=== PATIENT | female | born 1965 | race Caucasian/White ===

== ENCOUNTER 2017-12-18 18:19 | Inpatient (IN) | payer OTHER ==
[~2017-12-18] VITALS: Ht 157.5 cm; Wt 45.9 kg
[~2017-12-18 18:19] MED LIST: ADVAIR DISKU 11 UNIT INH; ATENOLOL25 MG PO; CLONIDINE0.1 MG PO; CYMBALTA 20 MG20 MG PO; FOLIC ACID 1 MG PO; FOLIC ACID 1MG (1 MG PO; FOLIC ACID PO; MULTI VITAMINS1 TAB PO; NEURONTIN100 MG PO; PROAIR HFA0.09 MG/Ac INH; PROTONIX 40MG T40 MG PO; SPIRIVA 18 MCG18 MCG INH; TRAZODONE HCL100 M1 PO; VITAMIN B1100 MG PO
--- NOTE | 2017-12-18 18:26 | ED PSYCHIATRIC COMPLAINT ---
History of Present Illness General Chief Complaint: ETOH/Drug Related Complaint Stated Complaint: BIBA ETOH DETOX Source: family Exam Limitations: clinical condition, intoxication Vital Signs & Intake/Output Vital Signs & Intake/Output Vital Signs Date Time Temp Pulse Resp B/P B/P Pulse O2 O2 Flow FiO2 Mean Ox Delivery Rate 12/19 1407 98.6 79 20 142/58 95 Nasal 2.0L Cannula 12/19 1129 97.1 72 18 125/65 96 Nasal 2.0L Cannula 12/19 1128 97.1 72 18 125/65 04/ 1124 98.0 77 18 129/69 96 Nasal 2.0L Cannula 12/19 0951 129/73 04/05 0936 98.7 95 20 129/73 04/05 0923 98.7 95 20 129/73 96 Nasal 2.0L Cannula 12/19 0833 96 Nasal 2.0L Cannula 12/19 0746 99.0 93 18 117/76 04/05 0721 99.0 93 18 117/76 100 Nasal 2.0L Cannula 12/19 0510 98.1 91 18 120/68 0405 0509 98.1 91 18 120/68 93 Nasal 2.0L Cannula 12/19 0321 96.9 85 18 116/63 97 Nasal 2.0L Cannula 12/19 0121 98.6 83 18 104/61 97 Nasal 2.0L Cannula 12/18 2319 98.4 82 16 100/58 98 Nasal 2.0L Cannula 12/18 2119 98.4 83 16 95/62 94 Nasal 2.0L Cannula 12/18 1918 96.0 92 16 126/75 94 Nasal 2.0L Cannula 12/18 1843 100 Nasal 2.0L Cannula 12/18 1837 98.6 102 18 99/56 100 Nasal 2.0L Cannula ED Intake and Output 12/19 0000 12/18 1200 Intake Total Output Total Balance Patient 110 lb Weight Weight Estimated Measurement Method Reconcile Medications Albuterol Sulfate (Proair Hfa) 0.09 MG/Actuation CATHY 2 PUFF INH Q4 PRN SHORTNESS OF BREATHE (Reported) Atenolol 25 MG TABLET 1 TAB PO DAILY bp (Reported) Duloxetine Hydrochloride (Cymbalta) 20 MG CAPSULE.DR 1 CAP PO BID depression (Reported) Fluticasone-Salmeterol (Advair 100-50 Diskus) 100 MCG-50 MCG/DOSE BLST.W.DEV 1 PUF INH BID BREATHING (Reported) Folic Acid (Folic Acid 1MG (0.2ML) Inj) 1 MG TABLET 1 TAB PO DAILY VITAMIN ( Reported) Folic Acid 1 MG TABLET 1 MG PO DAILY FOLATE SUPPLEMENT Gabapentin (Neurontin) 100 MG CAP 1 CAP PO TID anxiety Multivitamin (One Daily Multivitamin) 1 EACH TABLET 1 TAB PO DAILY MULTIVITAMIN Pantoprazole Sodium (Protonix) 40 MG TABLET.DR 1 TAB PO DAILY gerd Thiamine (Vitamin B1) 100 MG TAB 1 TAB PO DAILY VITAMIN B1 SUPPLEMENT Tiotropium [place] (Spiriva) 18 MCG CAP.W.DEV 1 CAP INH DAILY BREATHING ( Reported) TRAZODONE HCL (Trazodone HCl) 50 MG TABLET 1 TAB PO QPM anxiety (Reported) Triage Nurses Notes Reviewed? yes Onset: Abrupt Duration: unknown duration Timing: unknown Severity Numbers: 10 HPI: 12/18/17 7 PM 52-year-old female presents to the emergency department for alcohol intoxication. According to the patient's sister she drinks every day. She has severe COPD and is O2 dependent. She also smokes cigarettes. She also has a history of depression and has expressed suicidal ideation in the past. The sister feels she needs inpatient care. (Elías Worrell DO) Allergies Coded Allergies: citalopram (Intermediate, DIZZINESS 12/19/17) varenicline (Intermediate, UPSET STOMACH 12/19/17) (Luis MORLEY,Wolf) Past History Travel History Traveled to [place] past 21 day No Medical History Any Pertinent Medical History? 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 No (Elías Worrell DO) Review of Systems Review of Systems Constitutional: Reports: no symptoms. EENTM: Reports: no symptoms. Respiratory: Reports: short of breath. Cardiovascular: Denies: chest pain. GI: Denies: abdominal pain. Genitourinary: Reports: no symptoms. Musculoskeletal: Reports: no symptoms. Skin: Reports: no symptoms. Neurological/Psychological: Reports: no symptoms. Hematologic/Endocrine: Reports: no symptoms. Immunologic/Allergic: Reports: no symptoms. (Elías Worrell DO) Physical Exam Physical Exam General Appearance: anxious, moderate distress Head: atraumatic, normal appearance Eyes: Bilateral: normal appearance, PERRL, EOMI. Ears, Nose, Throat: normal pharynx, normal ENT inspection Neck: normal inspection, supple Respiratory: decreased breath sounds Cardiovascular: regular rate/rhythm Gastrointestinal: non-tender Extremities: normal range of motion Neurological/Psychiatric: awake, intoxicated Appearance/Memory/Insight: disheveled Behavoir/Eye Contact/Speech: cooperative Skin: intact, normal color, warm/dry SAD PERSONS SAD PERSONS Response Value Age <19 or >45 years? yes 1 Depression/Hopelessness? yes 2 Previous Attempts/Psych Care yes 1 Excessive Ethanol/Drug Use? yes 1 Single//? yes 1 Social Support? has support 0 Total 6 SAD PERSONS Done? yes (Elías Worrell DO) Progress Differential Diagnosis: drug intoxication, drug overdose, drug withdrawal, depression Plan of Care: Orders Procedure Date/time Status Regular Diet 12/19 B Active Admit to inpatient psych 12/19 1434 Active Continuous Observation Monitor 12/19 0700 Active Continuous Observation Monitor 12/19 0300 Active Continuous Observation Monitor 12/18 2300 Active Patient Safety Monitor 12/18 193 Active ED CRISIS PSYCH CONSULT 12/18 193 Active CIWA 12/19 1927 Active URINE DRUG SCREEN FOR ER ONLY 12/19 1927 Complete ETHANOL 12/19 1927 Complete COMPREHENSIVE METABOLIC PANEL 12/19 1927 Complete CBC WITHOUT DIFFERENTIAL 12/19 1927 Complete Continuous Observation Monitor 12/18 1900 Active Current Medications Sig/Benji Start time Last Medication Dose Stop Time Status Admin Trazodone HCl 50 MG QPM 12/19 2200 UNVr (Desyrel) Atenolol 25 MG DAILY 12/19 1000 UNVr 12/19 (Tenormin) 0951 Budesonide/ 2 PUF BID 12/19 1000 UNVr 12/19 Formoterol Fumarate 0951 (SYMBICORT) Tiotropium [place] 1 PUF DAILY 12/19 1000 UNVr 12/19 (Spiriva) 0951 Albuterol Sulfate 2 PUF Q4 12/19 0600 UNVr 12/19 (Ventolin) 1339 Gabapentin 100 MG Q8 12/19 0600 UNVr 12/19 (Neurontin) 1339 Duloxetine HCl 20 MG BID 12/19 0343 UNVr 12/19 (Cymbalta) 0951 Laboratory Tests 12/18/17 2215: Urine Opiates Screen < 100, Methadone Screen 49, Barbiturate Screen < 60, Ur Phencyclidine Scrn < 6.00, Amphetamines Screen < 100, U Benzodiazepines Scrn < 85, Urine Cocaine Screen < 50, Urine Cannabis Screen < 5.00 12/18/17 1950: Anion Gap 16, Estimated GFR > 60, BUN/Creatinine Ratio 10.0, Glucose 90, Calcium 8.9, Total Bilirubin 0.4, AST 28, ALT 21, Alkaline Phosphatase 63, Total Protein 6.9, Albumin 4.0, Globulin 2.9, Albumin/Globulin Ratio 1.4, CBC w Diff NO MAN DIFF REQ, RBC 4.14 L, MCV 95.7, MCH 30.6, MCHC 32.0 L, RDW 13.9, MPV 7.5, Gran % 77.1 H, Lymphocytes % 14.9 L, Monocytes % 5.1, Eosinophils % 1.9, Basophils % 1.0, Absolute Granulocytes 10.0 H, Absolute Lymphocytes 1.9, Absolute Monocytes 0.7 H, Absolute Eosinophils 0.2, Absolute Basophils 0.1, Serum Alcohol 267.0 Initial ED EKG: none Comments: 12/18/17 7 PM. The patient was signed out to Dr. Smith. (Elías Worrell DO) Hand-Off Endorsed To: Britton MORLEY,Freddy Knowles Endorsed Time: 0700 Pending: consult, other (ROSHNI) (Wolf Smith MD) Departure Departure Disposition: STILL A PATIENT Condition: Stable Referrals: Arvin Bui MD (PCP/Family) Departure Forms: Customer Survey General Discharge Information (Elías Worrell DO) Departure Clinical Impression Primary Impression: Depression with suicidal ideation Secondary Impressions: Alcohol intoxication, COPD (chronic obstructive pulmonary disease) (Wolf Smith MD) Psych Admission Note Psychiatric Admission: I have seen and evaluated SOMMER TORIBIO. I have also reviewed all the pertinent lab results and diagnostic results. SOMMER TORIBIO will be admitted to our inpatient Psychiatric unit for treatment and care. (Britton MORLEY,Freddy Knowles) Critical Care Note Critical Care Note Critical Care Time: 30-74 min (Elías Worrell DO)
[2017-12-18 20:08] LABS: ABSOLUTE BASOPHIL COUNT 0.1 /CUMM (0.0-0.2); ABSOLUTE EOSINOPHIL COUNT 0.2 /CUMM (0.0-0.7); ABSOLUTE LYMPH COUNT 1.9 /CUMM (1.2-3.4); ABSOLUTE MONOCYTE COUNT 0.7 /CUMM (0.10-0.60); EOSINOPHIL % 1.9 % (0-5); GRANULOCYTE % 77.1 % (42.2-75.2); HEMATOCRIT 39.6 % (37-47); MEAN CORPUSCULAR HGB 30.6 PG (27.0-31.0); MEAN CORPUSCULAR VOLUME 95.7 FL (81.0-99.0); MEAN PLATELET VOLUME 7.5 FL (7.4-10.4); PLATELET COUNT 371 /CUMM (130-400); RBC DISTRIBUTION WIDTH 13.9 % (11.5-14.5); RED BLOOD CELL CT 4.14 /CUMM (4.20-5.40); WHITE BLOOD CELL COUNT 12.9 /CUMM (4.8-10.8)
--- NOTE | 2017-12-18 20:38 | ED PSY CRISIS COLLATERAL NOTE ---
Collateral Note Collateral Note Family/Inform/Rani Contacts: Spoke in person with patient's sister Alanna Ballard [phone] (sister has hearing loss and may not be able to converse by phone. Sister reports patient has historical diagnoses of bipolar disorder, depressive disorder, anxiety disorder, and alcohol use disorder. Sister reports patient has no current mental health treatment provider and has been inconsistent with outpatient therapy. Sister believes she may not have had any formal mental health treatment since 2014. Patient was inpatient at [facility] in 2014 and then went to intensive outpatient program (IOP) and also a rehabilitation program followed by a sober [place]. During that year, sister reports patient achieved sobriety and had recovery support through [facility]. Patient did relapse when she returned home (mother's house). Per sister, patient has made suicidal statements within the past month such as "would be better of ." Sister believes patient is passively suicidal by drinking in conjuction with her current prescribed medications. Sister listed Trazadone, clonodine, klonopin as possible current medications she is prescribed. Sister reports she was prescribed Gabapentin in the past for alcohol withdrawal related seizures. Today, sister reports patient was hallucinating at home and may be hallucinating at the hospital. Patient stated to sister she believes she was in "[place]." Sister reports patient has a 37 year old daughter and a 28 year old son who both live out of state ([place] and [place] respectively.) She is fairly close with both children. She has no grandchildren. Patient receives social security disability benefits. Sister states patient is hopeless and has no friends, is isolative, and withdraws from family. Sister has observed patient only leaving the house to go to the pharmacy to pick and shovel man medications / buy cigarettes or go to the liquor store. Sister has observed patient drinking "nip" bottles but is unclear on the amount per day. Sister believes patient did drink today. Sister asked "I don't know how I can get a 72 hour hold? I need that." Sister asserts she would like to arrange for long-term treatment for patient before she is discharged as sister does not believe it would be safe for patient to return home with a discharge plan of outpatient therapy. Sister indicates she would prefer an inpatient admission or a transfer to a residential rehabilitation program. Sister is concerned that most treaters in the past 8 years have focused on her alcohol use disorder - sister states "everybody wants to treat the alcoholism...not the dual diagnosis.) Sister expressed frustration that patient' s medical condition (COPD and related need for oxygen) precludes her from some programs. Sister is willing to be a resource for patient and is supportive. Sister reports the family has suffered several losses recently (patient's brother due to a cardiac event, patient's father 3 years ago, and patient's sister in law recently.) Sister reports patient's father had an alcohol use disorder but was sober for several years before his . Spoke by phone with patient's mother Tierra Ballard [phone] *cell [phone] Patient lives with her mother - patient's sister Alanna also resides in the home. Mother states "She suffers from depression and alcoholism. She has had multiple opportunities to see somebody ...she doesnt go to her appointments...the alcoholism is an on-going thing for many years...over the last year she is doing it more frequently." Mother reports patient told her she saw a tree with "heads around it" (possible visual hallucination.) Two days ago, mother reports patient attempted to detox herself and spent two days in bed, sweating profusely. Today, patient was informed that her physician' s certified pharmacist assistant (CHRISTIE Sanford of [facility]) would no longer prescribe her Klonopin. Dr. Bledsoe also encouraged patient to go to [facility] for further evaluation per mother. Mother reports today, patient obtained some 90 proof liquor and became intoxicated. Mother reports patient was staggering and was incohert. Left voicemail with Yari Wayne, patient's daughter [phone]
[2017-12-19] VITALS (7 sets, daily range): BP systolic 117–139; BP diastolic 61–77
--- NOTE | 2017-12-19 13:43 | ED PSYCH CRISIS CONSULTATION ---
Crisis Consult Basic Assessment Date of Consult: 12/19/17 Responsible Person/Accompanied By: self/sister Alanna Insurance Authorization: Insurance #1: Insurance name: CECILE MOCK Phone number: Policy number: [id number] Group number: Authorization number: ED Provider: Patient's ED Provider: Elías Worrell DO Primary Care Physician: Patient's PCP: Arvin Bui MD PCP's Current Psychiatrist: aJyda SORIANO [facility] [phone] Chief Complaint: ETOH/Drug Related Complaint Patient's Quote: I was drinking too much lately Present Illness: Pt is a 52 yo female biba to [facility] ED last evening requesting alcohol detox. Pt was accompanied by her sister who reports that sister has a hx of depression, has been making suicidal statements and has a etoh withdrawal for seizures. Pt has had medical detox admissions at [facility] and a [facility]PS admission in 2014 for a suspected suicide attempt of overdose on her klonopin and ativan pills. Pt was discharged to [facility] but was not consistent with attendence and was soon discharged. Pt reportedly has had minimal treatment since. Pt is treated by Jayda SORIANO at [facility] and prescribed Lexapro, Clonidine, Trazadone and until 12/17 Klonopin. Pt also has a hx of inpatient alcohol treatment at [facility], [facility] and [facility]. Pt had been sober about 8months but relapsed 2 yrs ago and has been drinking steadily since. Pt reports 3 day binges of 10 nips per day though sister reports alcohol use is daily.Pt reports drinking more recently and feeling more depressed. She reports having made recent statements of being "better off ". She reports current depresion as a 8/10 and is feeling hopeless and helpless. Pt denies nonprescribed drug use. Pt is a cigarette smoker and requires oxygen for COPD. She reports a poor quality of life. She reports mostly staying home in bed or watching tv. Outside activity is limited to walking to the pharmacy and liquor store. Pt reports she is often bored and goes to bed early but then wakes up in the middle of the night and then is awake the rest of the night. Pt reports lose of appetite and is losing weight. Pt reports experiencing AH and VH under the influence of etoh. Pt denies HI. Pt presents as tremulous and diaphoretic. Appears weak and is laying down on bed during interview. Pt appears much older than stated age. Pt is cooperative and OX3. Pt reports willingness to enter inpatient treatment. Case reviewed with Dr Stephenson. Recommendation is for inpatient psychiatric treatment. Pt is in agreement with plan and will sign voluntary admission form for an admission to [facility]. C-SSRS completed, pts risk factors include prior suicide attempt, recent SI, previous psychiatric treatment, non-compliant with treatment recommendations, not currently receiving treatment, hopelessness, helplessness, depression, anxiety and COPD. Pt can identify the following protective factors: identifies reasons for living, specifically wanting to get sober for her children who are upset with her because of her alcohol use. Patient's Address: [address] [place] [address] Other Who Do You Live With? Other (see notes) (mother and sister) Family/Informants Interviewed: collateral provided by pt sister - see collateral note Allergies - Coded Allergies: citalopram (Intermediate, DIZZINESS 12/19/17) varenicline (Intermediate, UPSET STOMACH 12/19/17) Current Medications - Scheduled Medications Atenolol 25 MG TABLET 1 TAB PO DAILY bp (Reported) Entered as Reported by Kee Gonzalez MD on 12/02/142145 Duloxetine Hydrochloride (Cymbalta) 20 MG CAPSULE.DR 1 CAP PO BID depression # 60 (Reported) Entered as Reported by Baldomero Cooley MD on 01/13/15 1412 Fluticasone-Salmeterol (Advair 100-50 Diskus) 100 MCG-50 MCG/DOSE BLST.W.DEV 1 PUF INH BID BREATHING (Reported) Entered as Reported by Kee Gonzalez MD on 12/02/142146 Folic Acid (Folic Acid 1MG (0.2ML) Inj) 1 MG TABLET 1 TAB PO DAILY VITAMIN #30 (Reported) Entered as Reported by Baldomero Cooley MD on 01/12/15 1143 Folic Acid 1 MG TABLET 1 MG PO DAILY FOLATE SUPPLEMENT #30 Prescribed by Baldomero Cooley MD on 01/13/15 Gabapentin (Neurontin) 100 MG CAP 1 CAP PO TID anxiety #90 CAP Prescribed by Baldomero Cooley MD on 01/13/15 Multivitamin (One Daily Multivitamin) 1 EACH TABLET 1 TAB PO DAILY MULTIVITAMIN #30 Prescribed by Baldomero Cooley MD on 01/13/15 Pantoprazole Sodium (Protonix) 40 MG TABLET.DR 1 TAB PO DAILY gerd #30 Prescribed by Baldomero Cooley MD on 01/13/15 Thiamine (Vitamin B1) 100 MG TAB 1 TAB PO DAILY VITAMIN B1 SUPPLEMENT #30 Prescribed by Baldomero Cooley MD on 01/13/15 Tiotropium [place] (Spiriva) 18 MCG CAP.W.DEV 1 CAP INH DAILY BREATHING ( Reported) Entered as Reported by Kee Gonzalez MD on 12/02/142147 TRAZODONE HCL (Trazodone HCl) 50 MG TABLET 1 TAB PO QPM anxiety (Reported) Entered as Reported by Kee Gonzalez MD on 12/02/14 214 Scheduled PRN Medications Albuterol Sulfate (Proair Hfa) 0.09 MG/Actuation CATHY 2 PUFF INH Q4 PRN SHORTNESS OF BREATHE #9 (Reported) Entered as Reported by Baldomero Cooley MD on 01/12/15 1144 Laboratory Results: Laboratory Tests 12/18/17 2215: Urine Opiates Screen < 100, Methadone Screen 49, Barbiturate Screen < 60, Ur Phencyclidine Scrn < 6.00, Amphetamines Screen < 100, U Benzodiazepines Scrn < 85, Urine Cocaine Screen < 50, Urine Cannabis Screen < 5.00 12/18/17 1950: Anion Gap 16, Estimated GFR > 60, BUN/Creatinine Ratio 10.0, Glucose 90, Calcium 8.9, Total Bilirubin 0.4, AST 28, ALT 21, Alkaline Phosphatase 63, Total Protein 6.9, Albumin 4.0, Globulin 2.9, Albumin/Globulin Ratio 1.4, CBC w Diff NO MAN DIFF REQ, RBC 4.14 L, MCV 95.7, MCH 30.6, MCHC 32.0 L, RDW 13.9, MPV 7.5, Gran % 77.1 H, Lymphocytes % 14.9 L, Monocytes % 5.1, Eosinophils % 1.9, Basophils % 1.0, Absolute Granulocytes 10.0 H, Absolute Lymphocytes 1.9, Absolute Monocytes 0.7 H, Absolute Eosinophils 0.2, Absolute Basophils 0.1, Serum Alcohol 267.0 Past History Past Medical History Neurological: seizure, DTs ETOH WITHDRAWAL SEIZURES ETOH ABUSE status post fall down flight of stairs 09/2013 EENT: NONE Cardiovascular: hypertension Respiratory: NONE Gastrointestinal: NONE Hepatic: NONE Renal: NONE Musculoskeletal: disk herniation, right shoulder biceps/triceps surgery 05/2014 Psychiatric: alcohol dependence, anxiety, depression Endocrine: NONE Blood Disorders: NONE Cancer(s): NONE 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 Good listener, wants sobriety to have more of a life (productive, independent) Physical Limitations (Interventions): Back pain - can't stand or do sports for any length of time. Psychiatric Treatment History Psych Treatment Psychiatric Treatment Yes Inpatient Treatment Yes Outpatient Treatment Yes Location of Treatment [facility]; [facility] Reason for Treatment depression; alcohol dependence Dates of Treatment 2014 Response to Treatment poor follow through and relapse Diagnosis by History: Depression disorder, alcohol dependence Substance Use/Abuse History Drug Use/Abuse Substances Used/Abused Yes Substance Used/Abused Alcohol Last Used yesterday How much used/taken 10 nips How often daily For how long 3 yrs Substance Abuse Treatment Substance Abuse Treatment Past Substance Abuse TX Yes Inpatient Treatment Yes Outpatient Treatment Yes Location of Treatment [facility] Reason for Treatment alcohol dependence Dates of Treatment last sobriety 2 yrs ago Response to Treatment pt has gone to [facility] and but unable to maintain sobriety Comments: pt last drink was yesterday.Pt presents with tremors, shaking and reports feeling sick to her stomach. Current Mental Status Mental Status Orientation: Person, Place, Situation Affect: Depressed Speech: Soft Neuro-vegetative: Anhedonia, Appetite Decreased, Concentration Poor, Energy Decreased, Helpless, Hypersomnia, Loss of Interest, Sleep Disturbance Appearance Appearance- Dress/Hygiene: pt is hospital scrubs; appears frail, much older than stated age; receiving oxygen; laying prone in bed Behaviors Thought Process: WNL Thought Content: Auditory Hallucinations, Visual Hallucinations (when drinking etoh) Memory: Impaired Insight: Poor SI/HI Risk Assessment Past Suicidal Ideation/Attempts Yes Current Suicidal Ideation/Att Yes (passive) Past Homicidal Ideation/Att: No Current Homicidal Ideation/Attempts No Degree of Intent: Thoughts/No Intent Danger To: Self Gravely Disabled: Inability, Lack of Insight, Poor Impulse Control, Poor Judgment Risk Factors: access to lethal means, chronic/serious med cond., high anxiety/ distress, history of suicide atmpts, SA/MH hospitalized, substance abuse, poor impulse control, lack of outcome concern Lethality Ratin PTSD Checklist PTSD Done? patient declined ED Management Sitter: Yes Restraints: No DSM5/PS Stressors/Medical Prob Diagnosis' (DSM 5, Stressors, Medical): Major depression D/O F33.3 Alcohol Use D/O F10.20 Unspecified Anxiety D/O 41.9 medical Current GAF: 25 Comments: pt long hx of alcohol abuse and daily drinking past yr. Pt diagnosed with depression and expressing passive SI. Pt presents as gravely disabled with poor insight, judgement and inability to properly care for her medical needs. Departure Disposition Psych Medical Clearance Date: 12/19/17 Medically Cleared at: 1300 Time Started: 1300 Time Ended: 1345 Psychiatrist Consulted: Mariana Stephenson MD Date Disposition Established: 12/19/17 Time Disposition Established: 1415 Plan for Disposition - Modality: Inpatient Psychiatry Facility: [facility] Rationale for Disposition: Pt requires inpatient psychiatric admission to stabilize mood, assess for appropriate medications and monitor etoh withdrawal symptoms. Type of IP Admission: Voluntary Referrals Hao MORLEY,Arvin Landin (PCP/Family)
--- NOTE | 2017-12-19 16:28 | IP CRISIS DIAG ASSESS PSYCH ---
Diagnostic Assessment Basic Assessment Insurance Authorization: Insurance #1: Insurance name: CECILE Huerta [employer] [facility] Phone number: Policy number: [id number] Group number: Authorization number: [id number] Primary Care Physician: Patient's PCP: Arvin Bui MD PCP's Patient's Quote: I was drinking too much lately Present Illness: Pt is a 52 yo female biba to [facility] ED last evening requesting alcohol detox. Pt was accompanied by her sister who reports that sister has a hx of depression, has been making suicidal statements and has a etoh withdrawal for seizures. Pt has had medical detox admissions at [facility] and a CPS admission in 2015 for a suspected suicide attempt of overdose on her klonopin and ativan pills. Pt was discharged to [facility] but was not consistent with attendence and was soon discharged. Pt reportedly has had minimal treatment since. Pt is treated by Jayda SORIANO at [facility] and prescribed Lexapro, Clonidine, Trazadone and until 12/17 Klonopin. Pt also has a hx of inpatient alcohol treatment at [facility] and [facility]. Pt had been sober about 8months but relapsed 2 yrs ago and has been drinking steadily since. Pt reports 3 day binges of 10 nips per day though sister reports alcohol use is daily.Pt reports drinking more recently and feeling more depressed. She reports having made recent statements of being "better off ". She reports current depresion as a 8/10 and is feeling hopeless and helpless. Pt denies nonprescribed drug use. Pt is a cigarette smoker and requires oxygen for COPD. She reports a poor quality of life. She reports mostly staying home in bed or watching tv. Outside activity is limited to walking to the pharmacy and liquor store. Pt reports she is often bored and goes to bed early but then wakes up in the middle of the night and then is awake the rest of the night. Pt reports lose of appetite and is losing weight. Pt reports experiencing AH and VH under the influence of etoh. Pt denies HI. Pt presents as tremulous and diaphoretic. Appears weak and is laying down on bed during interview. Pt appears much older than stated age. Pt is cooperative and OX3. Pt reports willingness to enter inpatient treatment. Case reviewed with Dr Stephenson. Recommendation is for inpatient psychiatric treatment. Pt is in agreement with plan and will sign voluntary admission form for an admission to [facility]. C-SSRS completed, pts risk factors include prior suicide attempt, recent SI, previous psychiatric treatment, non-compliant with treatment recommendations, not currently receiving treatment, hopelessness, helplessness, depression, anxiety and COPD. Pt can identify the following protective factors: identifies reasons for living, specifically wanting to get sober for her children who are upset with her because of her alcohol use. Patient's Address: [address] [place] [address] Other Who Do You Live With? Other (see notes) (mother and sister) Feel Safe Where You Live? Yes Feel Safe in Your Relationship Yes Marital Status: Do You Have Children? Yes Ages? 36,28 Primary Language? Sierra Leonean Language(s) Spoken At Home: [place] Family/Informants Interviewed: collateral provided by pt sister - see collateral note Allergies - Coded Allergies: citalopram (Intermediate, DIZZINESS 12/19/17) varenicline (Intermediate, UPSET STOMACH 12/19/17) Current Medications - Scheduled Medications Atenolol 25 MG TABLET 1 TAB PO DAILY bp (Reported) Entered as Reported by Kee Gonzalez MD on 12/02/142145 Duloxetine Hydrochloride (Cymbalta) 20 MG CAPSULE. 1 CAP PO BID depression # 60 (Reported) Entered as Reported by Baldomero Cooley MD on 01/13/15 1412 Fluticasone-Salmeterol (Advair 100-50 Diskus) 100 MCG-50 MCG/DOSE BLST.W.DEV 1 PUF INH BID BREATHING (Reported) Entered as Reported by Kee Gonzalez MD on 12/02/142146 Folic Acid (Folic Acid 1MG (0.2ML) Inj) 1 MG TABLET 1 TAB PO DAILY VITAMIN #30 (Reported) Entered as Reported by Baldomero Cooley MD on 01/12/15 1143 Folic Acid 1 MG TABLET 1 MG PO DAILY FOLATE SUPPLEMENT #30 Prescribed by Baldomero Cooley MD on 01/13/15 Gabapentin (Neurontin) 100 MG CAP 1 CAP PO TID anxiety #90 CAP Prescribed by Baldomero Cooley MD on 01/13/15 Multivitamin (One Daily Multivitamin) 1 EACH TABLET 1 TAB PO DAILY MULTIVITAMIN #30 Prescribed by Baldomero Cooley MD on 01/13/15 Pantoprazole Sodium (Protonix) 40 MG TABLET.DR 1 TAB PO DAILY gerd #30 Prescribed by Baldomero Cooley MD on 01/13/15 Thiamine (Vitamin B1) 100 MG TAB 1 TAB PO DAILY VITAMIN B1 SUPPLEMENT #30 Prescribed by Baldomero Cooley MD on 01/13/15 Tiotropium [place] (Spiriva) 18 MCG CAP.W.DEV 1 CAP INH DAILY BREATHING ( Reported) Entered as Reported by Kee Gonzalez MD on 12/02/142147 TRAZODONE HCL (Trazodone HCl) 50 MG TABLET 1 TAB PO QPM anxiety (Reported) Entered as Reported by Kee Gonzalez MD on 12/02/142145 Scheduled PRN Medications Albuterol Sulfate (Proair Hfa) 0.09 MG/Actuation CATHY 2 PUFF INH Q4 PRN SHORTNESS OF BREATHE #9 (Reported) Entered as Reported by Baldomero Cooley MD on 01/12/15 1144 Consequences of Psych Med Use: pt Klonopin discontinued 12/17 by Prescriber due to continued etoh abuse Lab Results: Laboratory Tests 12/18/17 2215: Urine Opiates Screen < 100, Methadone Screen 49, Barbiturate Screen < 60, Ur Phencyclidine Scrn < 6.00, Amphetamines Screen < 100, U Benzodiazepines Scrn < 85, Urine Cocaine Screen < 50, Urine Cannabis Screen < 5.00 12/18/17 1950: Anion Gap 16, Estimated GFR > 60, BUN/Creatinine Ratio 10.0, Glucose 90, Calcium 8.9, Total Bilirubin 0.4, AST 28, ALT 21, Alkaline Phosphatase 63, Total Protein 6.9, Albumin 4.0, Globulin 2.9, Albumin/Globulin Ratio 1.4, CBC w Diff NO MAN DIFF REQ, RBC 4.14 L, MCV 95.7, MCH 30.6, MCHC 32.0 L, RDW 13.9, MPV 7.5, Gran % 77.1 H, Lymphocytes % 14.9 L, Monocytes % 5.1, Eosinophils % 1.9, Basophils % 1.0, Absolute Granulocytes 10.0 H, Absolute Lymphocytes 1.9, Absolute Monocytes 0.7 H, Absolute Eosinophils 0.2, Absolute Basophils 0.1, Serum Alcohol 267.0 Toxicology Screen Completed? Yes Results: positive Symptoms of Use: etoh Past History Past Medical History Medical History: COPD Past Surgical History Surgical History non-contributory Abuse/Trauma History Trauma History/Current Trauma: of [id number] (age 40yo) - 2yrs ago. History of Trauma/Abuse Treatment? No Abuse/Trauma Treatment: na Legal History Current Legal Status: none Have you ever been arrested? No Psychosocial History Strengths/Capabilities: prior ed report notes: Intellignt, social, cooking, I am a people person. Good listener, wants sobriety to have more of a life (productive, independent) Physical Limitations (Interventions): Back pain - can't stand or do sports for any length of time. Psychiatric Treatment History Psych Treatment Psychiatric Treatment Yes Inpatient Treatment Yes Outpatient Treatment Yes Location of Treatment [facility]; [facility] Reason for Treatment depression; alcohol dependence Dates of Treatment 2014 Response to Treatment poor follow through and relapse Diagnosis by History: Depression disorder, alcohol dependence Risk Factors: access to lethal means, chronic/serious med cond., high anxiety/ distress, history of suicide atmpts, SA/MH hospitalized, substance abuse, poor impulse control, lack of outcome concern Substance Use/Abuse History Drug Use/Abuse minimum 12mo Hx Substances Used/Abused Yes Substance Used/Abused Alcohol Last Used yesterday How much used/taken 10 nips How often daily For how long 3 yrs Substance Abuse Treatment Substance Abuse Treatment Past Substance Abuse TX Yes Inpatient Treatment Yes Outpatient Treatment Yes Location of Treatment [facility] Reason for Treatment alcohol dependence Dates of Treatment last sobriety 2 yrs ago Response to Treatment pt has gone to IOP and AA but unable to maintain sobriety Education History Highest Level of Education: high school/GED Preferred Learning Style: visual, auditory, experiential Current Mental Status Mental Status Orientation: Person, Place, Situation Affect: Depressed Speech: Soft Neuro-vegetative: Anhedonia, Appetite Decreased, Concentration Poor, Energy Decreased, Helpless, Hypersomnia, Loss of Interest, Sleep Disturbance Appearance Appearance- Dress/Hygiene: pt is hospital scrubs; appears frail, much older than stated age; receiving oxygen; laying prone in bed Behaviors Thought Process: WNL Thought Content: Auditory Hallucinations, Visual Hallucinations (when drinking etoh) Memory: Impaired Insight: Poor SI/HI Risk Assessment - Minimum 6mo History- Past Suicidal Ideation/Attempts Yes Current Suicidal Ideation/Att Yes (passive) Past Homicidal Ideation/Att: No Current Homicidal Ideation/Attempts No Degree of Intent: Thoughts/No Intent Danger To: Self Gravely Disabled: Inability, Lack of Insight, Poor Impulse Control, Poor Judgment Risk Factors: access to lethal means, chronic/serious med cond., high anxiety/ distress, history of suicide atmpts, SA/MH hospitalized, substance abuse, poor impulse control, lack of outcome concern Lethality Ratin Needs/Init TX Plan/Goals: Psychiatric Evaluation Medication Assessment Individual, Group and Family meetings Coordinated Discharge Planning AUDIT-C Questionnaire: AUDIT-C Questionnaire: Response Value ETOH use in the past year 4 or more per week 4 # drinks typical/day 10 or more 4 6 or > drinks per occasion Daily/Almost Daily 4 Total 12 DSM5/PS Stressors/Medical Prob Diagnosis' (DSM 5, Stressors, Medical): Major depression D/O F33.3 Alcohol Use D/O F10.20 Unspecified Anxiety D/O 41.9 medical Current GAF: 25 Comments: pt long hx of alcohol abuse and daily drinking past yr. Pt diagnosed with depression and expressing passive SI. Pt presents as gravely disabled with poor insight, judgement and inability to properly care for her medical needs.
[2017-12-19] MEDS ORDERED: LEVOCETIRIZINE D5 M1 PO (19:17)
[2017-12-19] MEDS ORDERED: ESCITALOPRAM OX20 MG PO (19:18)
[2017-12-19] MEDS ORDERED: IPRAT-ALBUT 0.5-3 ML INH (19:19)
[2017-12-19] MEDS ORDERED: BREO ELLIPTA 21 EACH PO (19:20)
[2017-12-19] MEDS ORDERED: CLONIDINE HCL0.1 MG PO (19:24)
[2017-12-19] MEDS ORDERED: CLONAZEPAM0.5 M2 PO (19:25)
[2017-12-20] VITALS (9 sets, daily range): BP systolic 106–132; BP diastolic 64–89
--- NOTE | 2017-12-20 08:22 | CPS PROVIDER INIT ASMT PSYCH ---
Psychiatric Admission Freight Clerk's Note Reviewed: Yes Patient Seen and Examined: Yes Identifying Information: Pt is a 52 yo female biba to [facility] ED last evening requesting alcohol detox. Chief Complaint: I was drinking too much lately Reaction to Hospitalization: voluntary admission History of Present Illness Onset of Illness: Pt was accompanied by her sister who reports that sister has a hx of depression, has been making suicidal statements and has a etoh withdrawal for seizures. Pt has had medical detox admissions at [facility] and a CPS admission in 2014 for a suspected suicide attempt of overdose on her klonopin and ativan pills. Pt was discharged to [facility] but was not consistent with attendence and was soon discharged. Pt reportedly has had minimal treatment since. Pt is treated by Jayda SORIANO at [facility] and prescribed Lexapro, Clonidine, Trazadone and until 12/17 Klonopin. Pt also has a hx of inpatient alcohol treatment at [facility], [facility], [facility], [facility] and [facility]. Pt had been sober about 8months but relapsed 2 yrs ago and has been drinking steadily since. Pt reports 3 day binges of 10 nips per day though sister reports alcohol use is daily.Pt reports drinking more recently and feeling more depressed. She reports having made recent statements of being "better off ". She reports current depresion as a 8/10 and is feeling hopeless and helpless. Circumstances Leading to Admission: see above Problem(s) Justifying Need for Admission: see above Past Psychiatric History Past Diagnosis(es)- if any: Depression disorder, alcohol dependence Past Precipitating Factors- if any: drinking - Include inpatient and outpatient treatment Treatment History: [facility]; [facility] Patient reports history of anxiety and history of poor memory and concentration. Patient reports she was seen at [facility] once or twice in the past. No suicide attempts. History of Suicide Attempts or Gestures None Substance Abuse History: Tobacco at about 1 pack per day. Alcohol use. Tried marijuana [address] drugs but has taken daughter's Klonopin. Patient was treated at [facility] in September 2014. She was at [facility] 2 years ago. She was at [facility] for 3 months in 2012. Allergies: Coded Allergies: citalopram (Intermediate, DIZZINESS 12/19/17) varenicline (Intermediate, UPSET STOMACH 12/19/17) Home Med List: Atenolol 25 MG TABLET 1 TAB PO DAILY bp Lexapro 20 mg QAM Folic Acid (Folic Acid 1MG (0.2ML) Inj) 1 MG TABLET Pantoprazole Sodium (Protonix) 40 MG TABLET.DR 1 TAB PO DAILY gerd #30 Clonidine Thiamine (Vitamin B1) 100 MG TAB 1 TAB PO DAILY VITAMIN B1 SUPPLEMENT #30 Tiotropium [place] (Spiriva) 18 MCG CAP.W.DEV 1 CAP INH DAILY BREATHING TRAZODONE HCL (Trazodone HCl) 50 MG TABLET 1 TAB PO QPM - Include any medical condition(s) that may - impact the patient's recovery/remission Past Medical History: COPD Past History Medical History Neurological: seizure, DTs ETOH WITHDRAWAL SEIZURES ETOH ABUSE status post fall down flight of stairs 09/2013 EENT: NONE Cardiovascular: hypertension Respiratory: NONE Gastrointestinal: NONE Hepatic: NONE Renal: NONE Musculoskeletal: disk herniation, right shoulder biceps/triceps surgery 05/2014 Psychiatric: alcohol dependence, anxiety, depression Endocrine: NONE Blood Disorders: NONE Cancer(s): NONE [employer] [facility] MAGISTRATE/Reproductive: NONE Isolation History: Standard Pneumonia Vaccine: 11/21/11 Influenza Vaccine: 05/26/11 Surgical History Surgical History: non-contributory Psychiatric Family/Social Hx Family History Psychiatric Illness: Reports mother, daughter and sister all have anxiety. No substance abuse history or suicides in the family. Substance Use: None Suicides: none Social History Living Situation: with parents Significant Relationships (family/friends): parents and daughter Education: 11th grade education Vocation/Occupation: Patient last worked 3-4 years ago at a [employer] and doing [email or web address]. Legal: denied legal issues Healthly Behaviors Screening Tobacco Screening Tobacco Use from ED Docu: Current Daily Use Daily Tobacco Use Amount/Type: => 5 Cigarettes daily - If tobacco counseling indicated - the following topics are required. - #1 Recognizing dangerous situations. - #2 Coping Skills. - #3 Basic information about quitting. Status of Tobacco Cessation Counseling: #1, #2 AND #3 Completed Cessation Med Status Nicotine Patch Ordered Alcohol Screening - ETOH screen POS if BAL >=80 or Audit-C>= M4/F3 Audit-C Score from Diag Assess: 12 Blood Alcohol Level: Laboratory Tests 12/18 1949 Toxicology Serum Alcohol (<10 MG/DL) 267.0 Alcohol Use Screening Results: Pos per Audit C &/or BAL - If ETOH counseling indicated - the following topics are required. - #1 Express concern about the patient's - drinking at unhealthy levels, include informing - of national norms for moderate drinking: - men <= 14 drinks/week, max 4 drinks/occasion - women <= 7 drinks/week, max 3 drinks/occasion - #2 Providing feedback, including linking alcohol to - negative physical effects (liver injury, hypertension) - negative emotional effects (relationship problems and - depression) - negative occupational consequences (reduced work - performance) - #3 Advising the patient to abstain from alcohol or - to drink below national norms for moderate drinking - (as listed above). Status of ETOH Use Counseling: #1, #2 AND #3 Completed. Metabolic Screening - Screen if on a Neuroleptic Medication - Metabolic screening should include: - Blood Pressure, BMI, Glucose or Hgb A1c, & a - Lipid profile from within the past 365 days. Metabolic Screening ([X]) Not Applicable, patient not on a neuroleptic. Exam and Plan Mental Status Examination Ambulation Status: The patient was interviewed in her bed she reported that she is not feeling well she is on oxygen therapy Appearance: Unremarkable appearance, she has oxygen via nasal cannula Attitude towards examiner: She was cooperative, she was calm but disinterested Psychomotor activity: Reduce psychomotor activity Behavior: No abnormal behaviors Quality of speech: Normal speech Affect: Constricted affect slightly irritable she reported that she is having mild withdrawal Mood: Depressed mood Suicidal Ideation: Denied thinking of suicide today Homicidal Ideation: Denied thinking of violence or homicide today Hallucinations: Denied hallucinations Paranoid/Delusional Material: Denied feeling paranoid, there were no delusions during the interview Difficulties with thought organization: Patient was coherent, there were no loose associations or incoherence Insight: Partial insight Judgment: Questionable judgment Orientation: Alert and oriented to time, place, and person Cognition: Seems to have reasonable attention and concentration Memory Function: No evidence of short-term memory impairment Estimate of intellectual functioning: Average Assets/Strengths Patient Identified Assets/Strengths: The patient seems to be self advocating and resourceful Impression/Plan Impression and Plan: 52-year-old single white female who was admitted because of concern about suicidal thinking. She has been drinking daily. She denied that she is having thoughts of suicide today she reported mild withdrawal symptoms - Include all active medical diagnosis that require tx DSM 5 Diagnosis(es): Unspecified depressive disorder Alcohol use disorder, severe - Initial Tx Plan for Active Psych & Medical Conditions Treatment Plan: Inpatient psychiatric care with safety checks every 15 minutes Nursing assessments, vital signs, and patient education Group therapy, milieu therapy, and activity therapy, Biopsychosocial assessment by social work, collateral, and aftercare planning Discontinue Cymbalta Resume Lexapro at 10 mg today and 20 mg as of tomorrow morning Continue detoxification from alcohol Will add Klonopin because the patient has been on Klonopin for about a month by his primary care physician and has had a history of withdrawal seizures in the past We will add gabapentin as well - Factors that would help patient function - in a less restrictive setting. Factors: The patient will be discharged if she continues to deny suicidal ideation over the weekend and once her detoxification is safely completed
--- NOTE | 2017-12-20 13:24 | SOCIAL WORKER SOCIAL HX PSYCH ---
Social History Basic Assessment Insurance Authorization: Insurance #1: Insurance name: CECILE Huerta [employer] [facility] Phone number: Policy number: [id number] Group number: Authorization number: PENDING Primary Care Physician: Patient's PCP: Arvin Bui MD PCP's Present Problem: Patient is depressed and overwhelmed by numeroous psychosocial stressors, and physical issues as well. Primary Language? [place] Citizen Language(s) Spoken At Home: [place] Citizen Living Situation Other Living Arrangement: friend's home, relative's/guardian's gisselle Feel Safe Where You Are Living Yes Feel Safe in Relationships? Yes Allergies - Coded Allergies: citalopram (Intermediate, DIZZINESS 12/19/17) varenicline (Intermediate, UPSET STOMACH 12/19/17) Current Medications - Scheduled Medications Atenolol 25 MG TABLET 1 TAB PO DAILY bp (Reported) Entered as Reported by Kee Gonzalez MD on 12/02/14 2146 Clonazepam 0.5 MG TABLET 1 TAB PO BID ANXIETY (Reported) Entered as Reported by Allen Mcconnell on 12/19/17 1925 Clonidine HCl 0.1 MG TABLET 1 TAB PO AT BEDTIME BLOOD PRESSURE (Reported) Entered as Reported by Allen Mcconnell on 12/19/17 1924 Duloxetine Hydrochloride (Cymbalta) 20 MG CAPSULE.DR 1 CAP PO BID depression # 60 (Reported) Entered as Reported by Baldomero Cooley MD on 01/13/15 1412 Escitalopram Oxalate 20 MG TABLET 1 TAB PO 0800 MENTAL HEALTH (Reported) Entered as Reported by Allen Mcconnell on 12/19/17 1918 Fluticasone/Vilanterol (Breo Ellipta 200-25 Mcg INH) 200 MCG-25 MCG/DOSE BLST.W.DEV 1 PUF PO 0800 COPD (Reported) Entered as Reported by Allen Mcconnell on 12/19/17 1920 Folic Acid (Folic Acid 1MG (0.2ML) Inj) 1 MG TABLET 1 TAB PO DAILY VITAMIN #30 (Reported) Entered as Reported by Baldomero Cooley MD on 01/12/15 1143 Folic Acid 1 MG TABLET 1 MG PO DAILY FOLATE SUPPLEMENT #30 Prescribed by Baldomero Cooley MD on 01/13/15 Gabapentin (Neurontin) 100 MG CAP 1 CAP PO TID anxiety #90 CAP Prescribed by Baldomero Cooley MD on 01/13/15 Levocetirizine Dihydrochloride 5 MG TABLET 1 TAB PO QPM ALLERGY (Reported) Entered as Reported by Allen Mcconnell on 12/19/171916 Multivitamin (One Daily Multivitamin) 1 EACH TABLET 1 TAB PO DAILY MULTIVITAMIN #30 Prescribed by Baldomero Cooley MD on 01/13/15 Pantoprazole Sodium (Protonix) 40 MG TABLET.DR 1 TAB PO DAILY gerd #30 Prescribed by Baldomero Cooley MD on 01/13/15 Thiamine (Vitamin B1) 100 MG TAB 1 TAB PO DAILY VITAMIN B1 SUPPLEMENT #30 Prescribed by Baldomero Cooley MD on 01/13/15 Trazodone HCl 100 MG TABLET 1 TAB PO AT BEDTIME SLEEP (Reported) Entered as Reported by Kee Gonzalez MD on 12/02/14 2146 Scheduled PRN Medications Albuterol Sulfate (Proair Hfa) 0.09 MG/Actuation CATHY 2 PUFF INH Q4 PRN SHORTNESS OF BREATHE #9 (Reported) Entered as Reported by Baldomero Cooley MD on 01/12/15 1144 Ipratropium/Albuterol Sulfate (Iprat-Albut 0.5-3(2.5) MG/3 Ml) 0.5 MG-3 MG (2.5 MG BASE)/3 ML AMPUL.NEB 1 VIAL INH Q6-PRN PRN COPD (Reported) Entered as Reported by Allen Mcconnell on 12/19/171918 Consequences of Psych Med Use: Has been on Lexapro for many years. She is unsure if it helps. 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 No Mother's Age (Current/): 79 Relationship w/Mother: Good relationship - anxiety (takes Ativan for anxiety) Father's Age (Current/): 81 Relationship w/Father: Good relationship, Father alcoholic (sober for 30yrs) father M.I. Any Sibling(s)? Yes Sibling's Gender(s)/Age(s): female Sibling 1:, female Sibling 2:, male Sibling 3:, male Sibling 4:, male Sibling 5: Relationship w/Sibling(s): Sister (50yo)-depression (Wellbutrin). Close with siblings - (age ranges 53, 50, 48, 45, 42) Relationship w/Friends: No good friends, not close to AA friends in [place]. Family Psych/Sub Abuse/Add Hx: drug of choice (Fa-alcoholic/Mo-anxiety), diagnosis Number of Pregnancies: 2 Number of Miscarriages: 1 Number of Abortions: 0 Abuse/Trauma History Trauma History/Current Trauma: of [id number] (age 40yo) - 2yrs ago. History of Trauma/Abuse Treatment? No Abuse/Trauma Treatment: na Legal History Current Legal Status: none Have you ever been arrested No Hx of Juvenile Legal Charges? No Psychosocial History Primary Support System: father, mother, daughter Strengths/Capabilities: prior ed report notes: Intellignt, social, cooking, I am a people person. Good listener, wants sobriety to have more of a life (productive, independent) Physical Limitations (Interventions): Back pain - can't stand or do sports for any length of time. Last Physical: 2013. History of Seizures? No Last Seizure: 12/02/14 History of Blackouts? Yes Last Blackout: 12/02/14 ADL Limitations: Difficulty staying asleep and getting to sleep (when drinking) [place]/Social/Peer Relations No friends now Meaningful Activities: Like cooking, family events (niece,nephew), be outside, garden, beach Childhood Scientology: Moravian Current Pentecostal Affiliation: Moravian Is Spirituality Important to You? Yes Patient's Ethnicity: Czechoslovakian, Kinyarwanda, South Korean, Bahamian Are There Developmental Issues? No Milestones Achieved: WNL Psychiatric Treatment History Psych Treatment Inpatient Treatment Yes Outpatient Treatment Yes Location of Treatment CPS; IOP Reason for Treatment depression; alcohol dependence Dates of Treatment 2014 Response to Treatment poor follow through and relapse Treatment of Prior Episodes: good Diagnosis: Depression disorder, alcohol dependence Psychodynamic Issues: isolated, depression, living with parents, financial issues Risk Factors: access to lethal means, chronic/serious med cond., high anxiety/ distress, history of suicide atmpts, SA/MH hospitalized, substance abuse, poor impulse control, lack of outcome concern Substance Use/Abuse History Drug Use/Abuse Substance Used/Abused Alcohol First Use 14 Last Used yesterday How much used/taken 10 nips How often daily For how long 3 yrs Route of use p.o. Have Had Periods of Sobriety? Yes Explain: 2 years was longest.' other periods of sobriety as well. Relapse History? Yes Explain: stressed Have You Ever Attended AA? Yes Do You Attend AA Currently? No Do You Have a Sponsor? No Symptoms of Use: etoh Substance Abuse Treatment Substance Abuse Treatment Inpatient Treatment Yes Outpatient Treatment Yes Location of Treatment [facility]; [place]; [facility]; [place] Reason for Treatment alcohol dependence Dates of Treatment last sobriety 2 yrs ago Response to Treatment pt has gone to IOP and AA but unable to maintain sobriety Sexual History Sexually Active No # of partners 0 Sexual Orientation Heterosexual Use of Protection No Education History Highest Level of Education: high school/GED Highest Grade Completed: 11th Preferred Learning Style: visual, auditory, experiential HX of Learning Difficulties: None reported Barriers to Learning: None reported Special Communication Needs: None reported Employment History Employment Unemployed Not in Labor Force: Disabled No. of Jobs in Last 5 Years: 2 Attendance: Normal Performance: Good History Have You Been in The ? No Current Mental Status Mental Status Orientation: Person, Place, Situation Affect: Depressed Speech: Soft Neuro-vegetative: Anhedonia, Appetite Decreased, Concentration Poor, Energy Decreased, Helpless, Hypersomnia, Loss of Interest, Sleep Disturbance Appearance Appearance- Dress/Hygiene: pt is hospital scrubs; appears frail, much older than stated age; receiving oxygen; laying prone in bed Behaviors Thought Process: WNL Thought Content: Auditory Hallucinations, Visual Hallucinations (when drinking etoh) Memory: Impaired Insight: Poor SI/HI Risk Assessment Past Suicidal Ideation/Attempts Yes Current Suicidal Ideation/Att Yes (passive) Past Homicidal Ideation/Att: No Current Homicidal Ideation/Attempts No Degree of Intent: Thoughts/No Intent Danger To: Self Gravely Disabled: Inability, Lack of Insight, Poor Impulse Control, Poor Judgment Risk Factors: Access to lethal weapons, Chronic/serious med cond, High Anxiety/ Distress, SA/MH Hospitalization(s), Isolated/no social suppor, Substance Abuse Lethality Ratin - Conclusion and Recommendations for treatment - and discharge planning Summary: Pt. overwhelmed at present, and danger to self.
--- NOTE | 2017-12-20 14:15 | SOCIAL WORKER PROG NOTE PSYCH ---
Social Work Progress Note Progress Note Pt would like to have her Mother involved in a family meeting for support, she states she would also like to return to dual IOP. We made her an intake appt on Saturday at 1:15pm with IOP. Pt reports feeling nauseas, she appears tired , and is on detox protocol. Denies any thoughts or feelings of si/hi/ah/vh at this time.
--- NOTE | 2017-12-20 15:48 | History & Physical ---
General Information and HPI MD Statement: I have seen and personally examined SOMMER TORIBIO and documented this H&P. The patient is a 52 year old F who presented with a patient stated chief complaint of depression and alcohol detox. Source of Information: patient, old records Exam Limitations: no limitations History of Present Illness: The patient is a 52 yo female with h/o COPD (on oxygen 2 L/min at night only), HTN, disk disease, EtOH abuse (h/o seizures), anxiety and depression who presented in the ED with depression and requesting alcohol detox. Her PCP (Jayda Orellana APRN) had been prescribing Klonopin 1 mg bid for 1 month+ and had just discontinued prescribing due to the patient's continued alcohol use. The patient was tremulous and anxious at the time of my exam. She also complained of mild cough w/o sputum, and some right posterior back pain with cough. No fever, chills, abdominal pain, or dyspnea. The patient's chart indicated that she used oxygen fulltime, however she stated only uses at night. Her pulse ox on RA with ambulation was 96% at the time of my exam. Allergies/Medications Allergies: Coded Allergies: citalopram (Intermediate, DIZZINESS 12/19/17) varenicline (Intermediate, UPSET STOMACH 12/19/17) Home Med list Albuterol Sulfate (Proair Hfa) 0.09 MG/Actuation CATHY 2 PUFF INH Q4 PRN SHORTNESS OF BREATHE (Reported) Atenolol 25 MG TABLET 1 TAB PO DAILY bp (Reported) Clonazepam 0.5 MG TABLET 1 TAB PO BID ANXIETY (Reported) Clonidine HCl 0.1 MG TABLET 1 TAB PO AT BEDTIME BLOOD PRESSURE (Reported) Duloxetine Hydrochloride (Cymbalta) 20 MG CAPSULE.DR 1 CAP PO BID depression (Reported) Escitalopram Oxalate 20 MG TABLET 1 TAB PO 0800 MENTAL HEALTH (Reported) Fluticasone/Vilanterol (Breo Ellipta 200-25 Mcg INH) 200 MCG-25 MCG/DOSE BLST.W.DEV 1 PUF PO 0800 COPD (Reported) Folic Acid (Folic Acid 1MG (0.2ML) Inj) 1 MG TABLET 1 TAB PO DAILY VITAMIN ( Reported) Folic Acid 1 MG TABLET 1 MG PO DAILY FOLATE SUPPLEMENT Gabapentin (Neurontin) 100 MG CAP 1 CAP PO TID anxiety Ipratropium/Albuterol Sulfate (Iprat-Albut 0.5-3(2.5) MG/3 Ml) 0.5 MG-3 MG (2.5 MG BASE)/3 ML AMPUL.NEB 1 VIAL INH Q6-PRN PRN COPD (Reported) Levocetirizine Dihydrochloride 5 MG TABLET 1 TAB PO QPM ALLERGY (Reported) Multivitamin (One Daily Multivitamin) 1 EACH TABLET 1 TAB PO DAILY MULTIVITAMIN Pantoprazole Sodium (Protonix) 40 MG TABLET.DR 1 TAB PO DAILY gerd Thiamine (Vitamin B1) 100 MG TAB 1 TAB PO DAILY VITAMIN B1 SUPPLEMENT Trazodone HCl 100 MG TABLET 1 TAB PO AT BEDTIME SLEEP (Reported) Compliance With Home Meds: GOOD Past History Travel History Traveled to [place] past 21 day No Medical History Neurological: NONE (ALCOHOL RELATED), seizure, DTs ETOH WITHDRAWAL SEIZURES ETOH ABUSE status post fall down flight of stairs 09/2013 EENT: NONE Cardiovascular: hypertension Respiratory: NONE (ON 2L NASAL OXYGEN AT NIGHT), COPD Gastrointestinal: NONE Hepatic: NONE Renal: NONE Musculoskeletal: disk herniation, right shoulder biceps/triceps surgery 05/2014 Psychiatric: alcohol dependence, anxiety, depression Endocrine: NONE Blood Disorders: NONE Cancer(s): NONE [place]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 Psychosocial History Services at Home: None Primary Language: Sami Smoking Status: Current Everyday Smoker ETOH Use: heavy use Illicit Drug Use: denies illicit drug use Functional Ability ADLs Independent: dressing, eating, toileting, bathing. Ambulation: independent IADLs Independent: shopping, housework, finances, food prep, telephone, transportation , medication admin. Employment History Employment Unemployed Review of Systems Review of Systems Constitutional: Denies: no symptoms. EENTM: Denies: no symptoms. Cardiovascular: Denies: no symptoms. Respiratory: Reports: cough (MILD). GI: Denies: no symptoms. Genitourinary: Denies: no symptoms. Musculoskeletal: Reports: back pain, joint pain (RT SHOULDER). Skin: Denies: no symptoms. Neurological/Psychological: Reports: anxiety, depressed, emotional problems. Hematologic/Endocrine: Denies: no symptoms. Immunologic/Allergic: Denies: no symptoms. Exam & Diagnostic Data Last 24 Hrs of Vital Signs/I&O Vital Signs Date Time Temp Pulse Resp B/P B/P Pulse O2 O2 Flow FiO2 Mean Ox Delivery Rate 12/20 1239 97.0 89 132/87 12/20 1231 89 132/87 97 12/20 1138 95.8 90 20 127/89 12/20 0804 95.8 90 127/89 98 /06 0549 64 20 112/72 / 0148 64 120/78 12/19 2229 69 123/61 12/20 2003 98.2 65 139/70 12/20 2003 98.2 65 139/70 12/19 1855 97.3 78 128/77 12/19 1612 98.4 88 18 126/70 94 Nasal 2.0L Cannula Intake & Output 12/20 1600 12/20 0800 12/20 0000 Intake Total Output Total Balance Patient 101 lb Weight Physical Exam General Appearance Alert, Oriented X3, Cooperative, No Acute Distress Skin No Rashes, No Breakdown, No Significant Lesion HEENT Atraumatic, PERRLA, EOMI, Mucous Membr. moist/pink Neck Supple, No JVD, No thryomegaly, +2 Carotid Pulse wo Bruit, No LAD Cardiovascular Regular Rate, Normal S1, Normal S2, No Murmurs Lungs Clear to Auscultation, Normal Air Movement (NO WHEEZE) Abdomen Normal Bowel Sounds, Soft, No Tenderness, No Hepatospenomegaly, No Masses Neurological Exam Findings: Normal Gait, Normal Speech, Strength at 5/5 X4 Ext, Normal Tone, Sensation Intact, Cranial Nerves 3-12 NL, Reflexes 2+ Cranial Nerves II through XII: INTACT Extremities No Clubbing, No Cyanosis, No Edema, Normal Pulses, No Tenderness/ Swelling Vascular Normal Pulses, Pulses Symmetrical Last 24 Hrs of Labs/Rk: Laboratory Tests 12/18 1950 Chemistry Sodium (137 - 145 mmol/L) 144 Potassium (3.5 - 5.1 mmol/L) 3.7 Chloride (98 - 107 mmol/L) 102 Carbon Dioxide (22 - 30 mmol/L) 26 Anion Gap (5 - 16) 16 BUN (7 - 17 mg/dL) 6 L Creatinine (0.5 - 1.0 mg/dL) 0.6 Estimated GFR (>60 ml/min) > 60 BUN/Creatinine Ratio (7 - 25 %) 10.0 Glucose (65 - 99 mg/dL) 90 Calcium (8.4 - 10.2 mg/dL) 8.9 Total Bilirubin (0.2 - 1.3 mg/dL) 0.4 AST (14 - 36 U/L) 28 ALT (9 - 52 U/L) 21 Alkaline Phosphatase (<127 U/L) 63 Total Protein (6.3 - 8.2 g/dL) 6.9 Albumin (3.5 - 5.0 g/dL) 4.0 Globulin (1.9 - 4.2 gm/dL) 2.9 Albumin/Globulin Ratio (1.1 - 2.2 %) 1.4 Hematology CBC w Diff NO MAN DIFF REQ WBC (4.8 - 10.8 /CUMM) 12.9 H RBC (4.20 - 5.40 /CUMM) 4.14 L Hgb (12.0 - 16.0 G/DL) 12.7 Hct (37 - 47 %) 39.6 MCV (81.0 - 99.0 FL) 95.7 MCH (27.0 - 31.0 PG) 30.6 MCHC (33.0 - 37.0 G/DL) 32.0 L RDW (11.5 - 14.5 %) 13.9 Plt Count (130 - 400 /CUMM) 371 MPV (7.4 - 10.4 FL) 7.5 Gran % (42.2 - 75.2 %) 77.1 H Lymphocytes % (20.5 - 51.1 %) 14.9 L Monocytes % (1.7 - 9.3 %) 5.1 Eosinophils % (0 - 5 %) 1.9 Basophils % (0.0 - 2.0 %) 1.0 Absolute Granulocytes (1.4 - 6.5 /CUMM) 10.0 H Absolute Lymphocytes (1.2 - 3.4 /CUMM) 1.9 Absolute Monocytes (0.10 - 0.60 /CUMM) 0.7 H Absolute Eosinophils (0.0 - 0.7 /CUMM) 0.2 Absolute Basophils (0.0 - 0.2 /CUMM) 0.1 Toxicology Urine Opiates Screen (>2000 NG/ML) < 100 Methadone Screen (>300 NG/ML) 49 Barbiturate Screen (>200 NG/ML) < 60 Ur Phencyclidine Scrn (>25 NG/ML) < 6.00 Amphetamines Screen (>1000 NG/ML) < 100 U Benzodiazepines Scrn (>200 NG/ML) < 85 Urine Cocaine Screen (>300 NG/ML) < 50 Urine Cannabis Screen (>50 NG/ML) < 5.00 Serum Alcohol (<10 MG/DL) 267.0 Assessment/Plan Assessment: Impression/Plan: #Depression/Anxiety- patient with depression and increased anxiety. Multifactorial as per psych note. Was on Klonopin 1 mg bid x 1 month and suddenly stopped. EtOH withdrawal also contributing. Plan: Admit to [facility]/Psychiatry. Care as per psychiatry. #Alcohol Dependence/Withdrawal- symptoms mild at present. Has had multiple prior detox admissions and Rx over the years. Would also need to be concerned regarding potential benzo withdrawal (taking Klonopin 1 mg bid x 1 month). Plan: As per psychiatry- detox protocol/CIWA, etc. On Tegretol/Gabapentin (?seizure prophylaxis). #Nicotine Addiction- on patch. Plan: Continue Patch- smoking cessation counseling. #Right Back Pain- with cough. Has mild tenderness posterior right mid ribs. Possible muscular vs hairline fracture. Plan: Tylenol for symptoms. #COPD- chronic hypoxic respiratory failure- patient on oxygen at night. Pulse ox good at present. Plan: Continue oxygen at night 2L/min and prn. Continue spiriva and albuterol inhalers. #HTN- on Atenolol. Plan: Continue atenolol. #GERD- on Pantoprazole. Plan: Continue PPI (omeprazole as inpatient). As Ranked By This Provider Problem List: 1. ALCOHOL WITHDRAWAL 2. Alcohol abuse 3. Anxiety 4. Cigarette smoker 5. Depression 6. Essential hypertension Miscellaneous Miscellaneous Documentation Attending Case Discussed With: Justin MORLEY,Dharmesh Primary Care Physician: Hao MORLEY,Arvin Landin Patient sees these Specialists NONE Level of Patient Care: [facility] Consults Needed: Consulting Physician: NONE Attending MD Review Statement Attending Statement Attending MD Statement: examined this patient, reviewed EMR data (avail), discussed with nursing, amended to note Attending Assessment/Plan: The patient was seen and discussed with nursing. As above.
[2017-12-21] VITALS (9 sets, daily range): BP systolic 118–135; BP diastolic 63–72
--- NOTE | 2017-12-21 11:26 | CP SOUTH PROGRESS NOTE PSYCH ---
Psych (Inpt) Progress Note Progress Note Include the following elements, when applicable: Involvement in the active treatment of the patient with behavioral observations of the patient and the patient's response to the treatment. Review of the ongoing treatment process in the context of the treatment plan. Indication of how multi-disciplinary staff members are carrying out the treatment plan. Plans for future interventions and recommendations for revision of the treatment plan. Liaison with other physicians/providers. Progress Note: Pt notes that she is very tired today as did not sleep overnight. She notes that she did speak to her sister yesterday, who is really supportive. Denies SI or HI. Current Medications Sig/Benji Start time Last Medication Dose Route Stop Time Status Admin Acetaminophen 500 MG Q6P PRN 12/20 1515 AC 12/20 PO 2121 Albuterol Sulfate 2 PUF Q4 12/19 0600 AC 12/21 INH 1000 Atenolol 25 MG DAILY 12/19 1000 AC 12/21 PO 1000 Budesonide/ 2 PUF BID 12/19 1000 AC 12/21 Formoterol Fumarate INH 1003 Clonazepam 1 MG 12/20 DC PO 12/27 1959 Clonazepam 1.5 MG 12/20 AC 12/20 PO 12/27 1959 2119 Clonazepam 1 MG ONCE ONE 12/20 1415 DC 12/20 PO 12/20 1416 1429 Escitalopram Oxalate 20 MG 0812/21 0800 AC 12/21 PO 1000 Folic Acid 1 MG DAILY 12/20 1000 AC 12/21 PO 1000 Gabapentin 600 MG 0800,1400,12/20 AC 12/21 PO 1000 Lorazepam 1 MG Q1 NEEDED PRN 12/19 1900 AC PO Lorazepam 2 MG Q1 NEEDED PRN 12/19 1900 AC PO Melatonin 5 MG AT BEDTIME 12/21 2200 UNVr PO Multivitamins 1 TAB DAILY 12/20 1000 AC 12/21 PO 1000 Nicotine 21 MG DAILY 12/20 1000 AC 12/21 TOP 1000 Omeprazole 40 MG 1/2H B/BREAKF/DINNER 12/20 1630 AC 12/21 PO 0637 Thiamine HCl 100 MG DAILY 12/20 1000 AC 12/21 PO 1000 Tiotropium Morris 1 PUF DAILY 12/19 1000 AC 12/21 INH 1001 Trazodone HCl 150 MG 12/21 2000 UNVr PO Trazodone HCl 50 MG AT BEDTIME NEED.. 12/21 1130 UNVr PO Trazodone HCl 100 MG 12/20 DC 12/20 PO 2118 Laboratory Tests 12/18 1950 Chemistry Sodium (137 - 145 mmol/L) 144 Potassium (3.5 - 5.1 mmol/L) 3.7 Chloride (98 - 107 mmol/L) 102 Carbon Dioxide (22 - 30 mmol/L) 26 Anion Gap (5 - 16) 16 BUN (7 - 17 mg/dL) 6 L Creatinine (0.5 - 1.0 mg/dL) 0.6 Estimated GFR (>60 ml/min) > 60 BUN/Creatinine Ratio (7 - 25 %) 10.0 Glucose (65 - 99 mg/dL) 90 Calcium (8.4 - 10.2 mg/dL) 8.9 Total Bilirubin (0.2 - 1.3 mg/dL) 0.4 AST (14 - 36 U/L) 28 ALT (9 - 52 U/L) 21 Alkaline Phosphatase (<127 U/L) 63 Total Protein (6.3 - 8.2 g/dL) 6.9 Albumin (3.5 - 5.0 g/dL) 4.0 Globulin (1.9 - 4.2 gm/dL) 2.9 Albumin/Globulin Ratio (1.1 - 2.2 %) 1.4 Hematology CBC w Diff NO MAN DIFF REQ WBC (4.8 - 10.8 /CUMM) 12.9 H RBC (4.20 - 5.40 /CUMM) 4.14 L Hgb (12.0 - 16.0 G/DL) 12.7 Hct (37 - 47 %) 39.6 MCV (81.0 - 99.0 FL) 95.7 MCH (27.0 - 31.0 PG) 30.6 MCHC (33.0 - 37.0 G/DL) 32.0 L RDW (11.5 - 14.5 %) 13.9 Plt Count (130 - 400 /CUMM) 371 MPV (7.4 - 10.4 FL) 7.5 Gran % (42.2 - 75.2 %) 77.1 H Lymphocytes % (20.5 - 51.1 %) 14.9 L Monocytes % (1.7 - 9.3 %) 5.1 Eosinophils % (0 - 5 %) 1.9 Basophils % (0.0 - 2.0 %) 1.0 Absolute Granulocytes (1.4 - 6.5 /CUMM) 10.0 H Absolute Lymphocytes (1.2 - 3.4 /CUMM) 1.9 Absolute Monocytes (0.10 - 0.60 /CUMM) 0.7 H Absolute Eosinophils (0.0 - 0.7 /CUMM) 0.2 Absolute Basophils (0.0 - 0.2 /CUMM) 0.1 Toxicology Urine Opiates Screen (>2000 NG/ML) < 100 Methadone Screen (>300 NG/ML) 49 Barbiturate Screen (>200 NG/ML) < 60 Ur Phencyclidine Scrn (>25 NG/ML) < 6.00 Amphetamines Screen (>1000 NG/ML) < 100 U Benzodiazepines Scrn (>200 NG/ML) < 85 Urine Cocaine Screen (>300 NG/ML) < 50 Urine Cannabis Screen (>50 NG/ML) < 5.00 Serum Alcohol (<10 MG/DL) 267.0 Vital Signs Date Time Temp Pulse Resp B/P B/P Pulse O2 O2 Flow FiO2 Mean Ox Delivery Rate 12/21 1000 91 135/71 /07 0813 97.0 91 135/71 04/07 0758 97.0 91 135/71 04/06 2000 99.1 82 106/66 04/06 1951 99.1 85 106/66 95 04/06 1542 82 112/64 04/06 1539 82 112/69 93 04/06 1239 97.0 89 132/87 04/06 1231 89 132/87 97 04/06 1138 95.8 90 20 127/89 MSE General appearance: good hygiene and grooming; Attitude: cooperative; Eye contact: appropriate; Movement: no psychomotor agitation or slowing; Speech: nl fluency, nl rate/rhythm, nl volume, nl prosody; Mood: "tired" Affect: irritable, flat, appropriate, constricted, non-labile, congruent; Thought process: linear and goal-directed; Thought content: denied SI or HI, no paranoid ideation; Perception: denied hallucinations- auditory, visual, does not appear to be responding to internal stimuli; I/J: limited A/P: Pt with MDD with recent SI and hx of SA now with slightly improved mood but struggling with sleep. Tolerating detox w/o difficulty. - Added melatonin and trazodone PRN - Increased standing trazodone to 150mg for sleep - Otherwise continue current medication regimen -Encourage integration into the milieu
[2017-12-22] VITALS (8 sets, daily range): BP systolic 108–125; BP diastolic 52–76
--- NOTE | 2017-12-22 13:40 | CP SOUTH PROGRESS NOTE PSYCH ---
Psych (Inpt) Progress Note Progress Note Include the following elements, when applicable: Involvement in the active treatment of the patient with behavioral observations of the patient and the patient's response to the treatment. Review of the ongoing treatment process in the context of the treatment plan. Indication of how multi-disciplinary staff members are carrying out the treatment plan. Plans for future interventions and recommendations for revision of the treatment plan. Liaison with other physicians/providers. Progress Note: Pt notes that she is "still foggy" overall (been days). Slept better. Open on continued klonopin taper from 2mg total daily. Notes ongoing depression. Denies SI or HI. Current Medications Sig/Benji Start time Last Medication Dose Route Stop Time Status Admin Acetaminophen 500 MG Q6P PRN 12/20 1515 AC 12/22 PO 0825 Albuterol Sulfate 2 PUF Q4 12/19 0600 AC 12/22 INH 1335 Atenolol 25 MG DAILY 12/19 1000 AC 12/22 PO 0824 Budesonide/ 2 PUF BID 12/19 999 AC 12/22 Formoterol Fumarate INH 08 Clonazepam 0.5 MG 12/22 UNVr PO 12/29 195 Clonazepam 0.75 MG .[700] 12/22 1330 UNVr PO 12/29 1329 Clonazepam 1.5 MG 12/20 DC 12/21 PO 12/27 1959 2023 Escitalopram Oxalate 20 MG 0800 12/21 0800 AC 12/22 PO 0823 Folic Acid 1 MG DAILY 12/20 1000 AC 12/22 PO 0824 Gabapentin 600 MG 0800,1400,12/20 AC 12/22 PO 1334 Lorazepam 1 MG Q1 NEEDED PRN 12/19 1900 AC PO Lorazepam 2 MG Q1 NEEDED PRN 12/19 1900 AC PO Melatonin 5 MG AT BEDTIME 12/21 2200 AC 12/21 PO 2020 Mirtazapine 7.5 MG AT BEDTIME 12/22 2200 UNVr PO Multivitamins 1 TAB DAILY 12/20 1000 AC 12/22 PO 0824 Nicotine 21 MG DAILY 12/20 1000 AC 12/22 TOP 0824 Omeprazole 40 MG 1/2H B/BREAKF/DINNER 12/20 1630 AC 12/22 PO 0728 Thiamine HCl 100 MG DAILY 12/20 1000 AC 12/22 PO 0824 Tiotropium [place] 1 PUF DAILY 12/19 999 AC 12/22 INH 0826 Trazodone HCl 150 MG 12/21 AC 12/21 PO 2020 Trazodone HCl 50 MG AT BEDTIME NEED.. 12/21 1130 AC PO Vital Signs Date Time Temp Pulse Resp B/P B/P Pulse O2 O2 Flow FiO2 Mean Ox Delivery Rate 12/22 1232 82 121/76 12/22 1219 82 121/76 94 12/23 0724 96.2 71 20 125/52 12/22 0745 96.2 71 125/52 12/22 0736 96.4 71 125/52 98 12/21 2012 97.2 84 118/72 12/22 1999 97.2 84 118/72 12/21 1554 89 120/63 12/21 1551 89 120/63 12/21 1455 97.7 74 20 119/72 MSE General appearance: good hygiene and grooming; Attitude: cooperative; Eye contact: appropriate; Movement: no psychomotor agitation or slowing; Speech: nl fluency, nl rate/rhythm, nl volume, nl prosody; Mood: "depressed" Affect: irritable, flat, appropriate, constricted, non-labile, congruent; Thought process: linear and goal-directed; Thought content: denied SI or HI, no paranoid ideation; Perception: denied hallucinations- auditory, visual, does not appear to be responding to internal stimuli; I/J: limited A/P: Pt with MDD with recent SI and hx of SA now with slightly improved mood but struggling with sleep. Tolerating detox w/o difficulty. - Decreased klonopin to 0.75mg in the mornign and 0.5mg at bedtime - Start mirtazapine 7.5mg at bedtime - Otherwise continue current medication regimen -Encourage integration into the milieu
[2017-12-23] VITALS (7 sets, daily range): BP systolic 109–122; BP diastolic 70–74
--- NOTE | 2017-12-23 08:19 | CP SOUTH PROGRESS NOTE PSYCH ---
Psych (Inpt) Progress Note Progress Note Vital Signs: Blood pressure 109/72 mmHg, pulse: 77 bpm, temperature: 96.8F MSE Pt complained of ongoing anxiety, she reported that she is still feeling down, she does not feel back to her usual self, but she denied wishing or thinking of suicide. Slept better last night after the addition of Remeron. Notes ongoing depression. Denies SI or HI. She was anxious but cooperative and her speech was normal no psychomotor agitation or slowing; Thought process: linear and goal-directed; Thought content: denied SI or HI, no paranoid ideation; Perception: denied hallucinations does not appear to be responding to internal stimuli Assessment: Pt with MDD with recent SI and hx of SA now with slightly improved mood but struggling with sleep. Tolerating detox w/o difficulty. Treatment plan update: Decrease and Change Klonopin to 0.5 mg in the morning and 0.5mg at 2 PM Continue mirtazapine 7.5mg at bedtime Escitalopram Oxalate 20 MG 0800 12/21 0800 AC 12/22 Folic Acid 1 MG DAILY 12/20 999 AC 12/22 Gabapentin 600 MG 0800,1400,12/20 AC 12/22 Lorazepam 1 MG Q1 NEEDED PRN 12/19 1900 AC Lorazepam 2 MG Q1 NEEDED PRN 12/19 190 AC Melatonin 5 MG AT BEDTIME 12/21 2200 AC 12/21 Nicotine 21 MG DAILY 12/20 999 AC 12/22 Thiamine HCl 100 MG DAILY 12/20 999 AC 12/22 Tiotropium [place] 1 PUF DAILY 12/19 999 AC 12/22 Trazodone HCl 150 MG 12/21 Trazodone HCl 50 MG AT BEDTIME NEED.. 12/21 1130 AC Speech: nl fluency, nl rate/rhythm, nl volume, nl prosody; Mood: "depressed" Affect: irritable, flat, appropriate, constricted, non-labile, congruent; Thought process: linear and goal-directed; Thought content: denied SI or HI, no paranoid ideation; Perception: denied hallucinations- auditory, visual, does not appear to be responding to internal stimuli; I/J: limited A/P: Pt with MDD with recent SI and hx of SA now with slightly improved mood but struggling with sleep. Tolerating detox w/o difficulty. - Decreased klonopin to 0.75mg in the mornign and 0.5mg at bedtime - Start mirtazapine 7.5mg at bedtime - Otherwise continue current medication regimen Acetaminophen 500 MG Q6P PRN 12/20 1515 AC 12/22 Albuterol Sulfate 2 PUF Q4 12/19 06 AC 12/22 Atenolol 25 MG DAILY 12/19 1000 AC 12/22 Budesonide/ 2 PUF BID 12/19 999 AC 12/22 Formoterol Fumarate INH 08 Clonazepam 0.5 MG 12/22 UNVr Clonazepam 0.75 MG .[700] 12/22 1330 UNVr Clonazepam 1.5 MG 12/20 DC 12/21 Escitalopram Oxalate 20 MG 0812/21 0800 AC 12/22 Folic Acid 1 MG DAILY 12/20 999 AC 12/22 Gabapentin 600 MG 0800,1400,12/20 AC 12/22 Lorazepam 1 MG Q1 NEEDED PRN 12/19 1900 AC Lorazepam 2 MG Q1 NEEDED PRN 12/19 190 AC Melatonin 5 MG AT BEDTIME 12/21 2200 AC 12/21 PO 2020 Mirtazapine 7.5 MG AT BEDTIME 12/22 220 UNVr Nicotine 21 MG DAILY 12/20 1000 AC 12/22 Thiamine HCl 100 MG DAILY 12/20 999 AC 12/22 Tiotropium [place] 1 PUF DAILY 12/19 999 AC 12/22 Trazodone HCl 150 MG 12/21 AC 12/21 Trazodone HCl 50 MG AT BEDTIME NEED.. 12/21 1130
--- NOTE | 2017-12-23 14:32 | SOCIAL WORKER PROG NOTE PSYCH ---
Social Work Progress Note Progress Note Radha reported feeling groggy today. Presents depressed, tearful at times. Talking about how she is sick of her life and "doesn't want to be here." She talked about how she helps take care of her Mother, but other than that she feels like she has no life. She reports no friends or other supports. She said she has nothing to do. Feels upset/ guilty over relapsing on alcohol 3-4 weeks ago. Stated she has been drinking Rum a few times a week. Said she thinks she has around 8 nips at a time. She reports her behaviors while drinking have gotten significantly worse. She falls or passes out. She said she hit her head recently. Feels bored and lonely. Identifies her sister Alanna as someone who helps her. She is open to having a family meeting with her sister, but didn't really want to involve her Mom. She doesn't think IOP is beneficial to her or rehab at this time. She is only agreeing to a prescriber and therapy. She said her Mom won't allow her to drive the car anymore and do she doesn't think she can get to a program more than 1x a week. Asked her about AA involvement? She said she has tried AA, but found it to be "clicky". Talked about how sometimes it takes time to find the right meeting. Reports she thinks her family doesn't want anything to do with her. Feels they all know her thoughts and that no one will want to talk to her, so she avoids others in her family. Reports having 2 children 1 son in [place] and 1 daughter in [place]. She doesn't see them often. Said she had a nice conversation with her son and he had nice things to say about her that surprised her. Feels confused about what meds she is taking at this time. Encouraged her to ask nursing to help her with that. Mood remains low at this time with high anxiety. Called Sister Alanna [phone] to schedule family meeting tomorrow for 11am.
--- NOTE | 2017-12-23 18:13 | SOCIAL WORKER PROG NOTE PSYCH ---
Social Work Progress Note Progress Note Completed [facility] onliune review. Check [facility] for next review date.
[2017-12-24 07:43] VITALS: BP 126/80
--- NOTE | 2017-12-24 08:23 | CP SOUTH PROGRESS NOTE PSYCH ---
Psych (Inpt) Progress Note Progress Note Vital Signs: Blood pressure: 126/80 mmHg, pulse: 95 bpm, temperature: 96.3F, and RR: 20/min The patient's progress, treatment plan, and aftercare plans were discussed and the treatment team meeting this morning. The treatment team included nursing staff, social work staff, group/milieu, and activity therapy staff, and psychiatrist. Mental Status Examination: Radha was alert & oriented to time, place, and person. She was cooperative and her speech was normal, no psychomotor agitation or slowing. Pt. reported that she is feeling anxious and depressed. She reported that--in comparison to when she was admitted-- she is less depressed and less anxious. Radha denied wishing or thinking of suicide. She reported that she is interetsed in Wellbutrin because her sister takes it with Celexa and that her sister is happy with that combination. She denied thoughts of violence or homicide. Her thought process was linear and goal-directed; no paranoid ideation. Radha denied hallucinations does not appear to be responding to internal stimuli Assessment: Radha is a 52-year-old White female who was admitted to the inpatient psychiatric unit on December 19/2018 with recent SI and hx of SA Since then, Radha is slightly improved in mood, no wishing or thoughts of suicide in the past 24 hours Treatment Plan Update: I discussed pharmacological options with Radha and her desire for Wellbutrin ( and Celexa). I discussed the potential side effects and potential benefits. She seemed to understand and asked intelligent questions about her medications. We agreed on the following plan: 1) Start Wellbutrin-XL 150 mg every morning 2) Discontinue mirtazapine 3) Continue Escitalopram 20 MG Q 0800 4) Reduce Gabapentin to 400 mg 0800,1400,1999 5) Continue Klonopin 0.5 mg in the morning and 0.5mg at 2:00 PM Nicotine 21 MG DAILY Tiotropium [place] 1 PUF DAILY Trazodone HCl 150 MG 1999 Trazodone HCl 50 MG AT BEDTIME NEED..
[2017-12-24 12:07] VITALS: BP 121/70
--- NOTE | 2017-12-24 12:08 | SOCIAL WORKER PROG NOTE PSYCH ---
Social Work Progress Note Progress Note Radha's sister Alanna came for a family meeting this morning. Dr. Anderson was also in attendance. Alanna reported not sleeping well last night, due to having her nicotine patch still on. She reported nightmares. Reports anxiety is still high, but less than yesterday rating herself at an 8 today (0-10, 10 being most severe). I asked what helped bring it down from a 10 to an 8 today? She said getting up in the morning and not sleeping in. Mood remains sad. Talked about how she doesn't like her life the way it is and she misses the life she used to have. Sister reported that she used to have friends and used to work, but she has none of that anymore. Radha doesn't actively want to kill herself, but she doesn't want to exist the way she has been. Stressed the importance of making changes from this hospitalization, so that the same patterns don't persist. She is interested in trying Naltrexone. She is interested in doing individual therapy and a couple of groups per week. Talked about trying to come up with some activities to work on/ goals for herself to keep her active during the day. She seems to be working at avoiding her feelings. Stating she hasn't cried in a couple of years and she is actually starting to feel some emotions while here. Talked about the importance of being able to tolerate sadness/ loneliness and work through it vs. drink. We will see how she is feeling in the next day or two to d/c by or Saturday the latest. Sister seems supportive. Not worried about her actively doing anything to hurt herself, but worried about her potential to keep drinking and the risks involved. Will refer to [facility] and set up with individual therapy.
--- NOTE | 2017-12-24 14:23 | Patient Discharge Instructions ---
Psych Discharge Inst General Discharge Information Reason for Admission: thoughts of suicide, increasing depression Psy Discharge Primary Diag+ Major Depressive Disorder Psy Discharge Secondary Diag+ Alcohol Use Disorder, Severe Summary Tests/Major Procedures No significant abnormalities Studies Pending at DC: None Patient Instructions Contact Information Your Psychiatrist on [facility] was Dharmesh Anderson MD * If you are experiencing an emergency related to this hospitalization, please call [phone] to contact the treating psychiatrist or the psychiatrist-on- call. * To Request a copy of your medical records, please contact the Medical Records Department at [phone]. * To request results of studies pending at the time of discharge, please call [phone]. * Continue your Medications until directed to stop by your Healthcare provider. General Medication Information Please continue to take your new medications and your continued home medications , unless otherwise indicated on your discharge medication list, or unless directed by your MD or MANNEQUIN REFINISHER to stop them. Special Instructions Diet Regular Activity Normal - Tobacco Use Treatment Offered Post DC Medications Offered: Script Given-See Med List Post DC Tobacco Treatment Plan: Refused Tobacco Tx Pgm - EtOH/Drug Use D/O Treatment Offered Post DC Medications Offered: Script Given-See Med List Post DC EtOH/SubAbuse TX Plan: Refused Post DC Tx Pgm Metabolic Screening ([X]) Not Applicable, patient not on a neuroleptic. Advance Directives Does the Patient have Medical Advance Directives Yes/Copy not provided Does Pt have Psychiatric Advance Directives? No/Refused further info Does Patient have a Designated Surrogate Decision Maker: No Information About Psychiatric Advance Directives Provided? Refused Discharge Plan Post Hospital Treatment Plan: [facility]'s OPS
--- NOTE | 2017-12-24 14:24 | DISCHARGE SUMMARY REPORT-PSYCH ---
Visit Information Visit Dates/Diagnosis' Admission Date: 12/19/17 Discharge Date: 12/30/17 Reason for Admission: thoughts of suicide, increasing depression Psy Discharge Primary Diag: Major Depressive Disorder Psy Discharge Secondary Diag: Alcohol Use Disorder, Severe Hospital Course Significant Lab Findings: Lab Serum Alcohol 267.0 MG/DL 12/18/17 1950 Course Complications: The patient did not have any complications while she was on the inpatient psychiatric unit Consultations: The patient had a history and physical examination performed by the preformer impregnated fabrics/ hospitalist. Please refer to the patient's electronic health record for the H&P note Allergies: Coded Allergies: citalopram (Intermediate, DIZZINESS 12/19/17) varenicline (Intermediate, UPSET STOMACH 12/19/17) Hospital Course/TX Response: 12/21/2017: Dr. Oakes: - Added melatonin and trazodone PRN - Increased standing trazodone to 150mg for sleep - Otherwise continue current medication regimen 12/22/2017 - Decreased klonopin to 0.75mg in the mornign and 0.5mg at bedtime - Start mirtazapine 7.5mg at bedtime - Otherwise continue current medication regimen -Encourage integration into the milieu 12/23/2017: Decrease and Change Klonopin to 0.5 mg in the morning and 0.5mg at 2 PM 12/24/2017: 1) Start Wellbutrin-XL 150 mg every morning 2) Discontinue mirtazapine 3) Continue Escitalopram 20 MG Q 0800 4) Reduce Gabapentin to 400 mg 0800,1400,2000 5) Continue Klonopin 0.5 mg in the morning and 0.5mg at 2:00 PM 12/25/2017: 1) Change Klonopin to 1 mg Q 8:00 PM 12/26/2017: No changes 12/27/2017: No changes 12/28/2017 no changes 12/29/2017 no changes 12/30/2017 The patient's progress, treatment plan, and aftercare plans were discussed with the treatment team (RN, social work staff, Group/milieu, and activity therapy staff, and psychiatrist). Vital Signs Date Time Temp Pulse Resp B/P Pulse O2 O2 Flow FiO2 12/30 0914 96.2 81 20 122/71 12/30 0834 96.2 81 122/71 96 Mental status: The patient was alert and oriented to time, place, and person. She was pleasant , cooperative and socializing with peers earlier today. She was calm and her speech is normal. No psychomotor changes. She is in a good mood and affect is full and reactive. Her thought process was goal directed and there is no evidence of depression, thoughts to harm self or psychotic sx. Insight and judgment are good. Plan: Discharge home with plan to continue treatment with OPS Discharge HBIPS - Tobacco Use Treatment Offered Post DC Medications Offered: Script Given-See Med List Post DC Tobacco Treatment Plan: Refused Tobacco Tx Pgm - EtOH/Drug Use D/O Treatment Offered Post DC Medications Offered: Script Given-See Med List Post DC EtOH/SubAbuse TX Plan: Refused Post DC Tx Pgm Metabolic Screening - Screen if on a Neuroleptic Medication - Metabolic screening should include: - Blood Pressure, BMI, Glucose or Hgb A1c, & a - Lipid profile from within the past 365 days. Metabolic Screening ([X]) Not Applicable, patient not on a neuroleptic. Discharge Instructions General Discharge Information Multiple Neuroleptics: ([X]) Not Applicable Discharge Diet Regular Discharge Activity Normal DC Disposition: Discharge home Referrals Ordered Referrals Provider Referral 12/31/17 For Groups: Outpatient Psychiatry [facility] Intake appt. 12/31/17 11am with Prerna Landin [address] [place] [address] Provider Referral 01/16/18 For Groups: Outpatient Psych[facility] Appt. for Med Evaluation with Dr. Day 01/16/18 11am [address] [place] [address] Provider Referral 01/01/18 For Groups: [Delmis Jalloh LCSW] Appt. with Delmis Jalloh LCSW (therapist) 01/01/[address] [place], [place] [id number] Prescriptions Stop taking the following medications: Atenolol (Atenolol) 25 MG TABLET ORAL DAILY Folic Acid (Folic Acid) 1 MG TABLET ORAL DAILY Qty = 30 Duloxetine Hydrochloride (Cymbalta) 20 MG CAPSULE. ORAL TWICE DAILY Qty = 60 Gabapentin (Neurontin) 100 MG CAP ORAL THREE TIMES DAILY Qty = 90 Levocetirizine Dihydrochloride (Levocetirizine Dihydrochloride) 5 MG TABLET ORAL Every night Clonidine HCl (Clonidine HCl) 0.1 MG TABLET ORAL AT BEDTIME Continue taking these medications: Trazodone HCl (Trazodone HCl) 100 MG TABLET 1 Tablet ORAL AT BEDTIME Comments: Last Taken:12/29/17 Time:10pm Albuterol Sulfate (Proair Hfa) 0.09 MG/Actuation CATHY 2 PUFF Inhale through mouth Every 4 hours as needed for SHORTNESS OF BREATHE Qty = 9 Multivitamin (One Daily Multivitamin) 1 EACH TABLET 1 Tablet ORAL DAILY Qty = 30 Comments: Last Taken:01/14/15 Time:8:30AM Thiamine (Vitamin B1) 100 MG TAB 1 Tablet ORAL DAILY Qty = 30 Comments: Last Taken:01/14/15 Time:8:30AM Ipratropium/Albuterol Sulfate (Iprat-Albut 0.5-3(2.5) MG/3 Ml) 0.5 MG-3 MG (2.5 MG BASE)/3 ML AMPUL.NEB 1 VIAL Inhale through mouth EVERY 6 HOURS NEEDED as needed for COPD Comments: Last Taken:12/30/17 Time:8am Fluticasone/Vilanterol (Breo Ellipta 200-25 Mcg INH) 200 MCG-25 MCG/DOSE BLST.W.DEV 1 Puff ORAL DAILY @8 AM Comments: substituted in hospital Clonazepam (Clonazepam) 0.5 MG TABLET 1 Tablet ORAL TWICE DAILY Qty = 30 Comments: Last Taken:12/29/17 Time:10pm This prescription has been renewed Escitalopram Oxalate (Escitalopram Oxalate) 20 MG TABLET 1 Tablet ORAL DAILY @8 AM Qty = 15 Comments: Last Taken:12/30/17 Time:8am This prescription has been renewed Start taking the following new medications: Nicotine (Nicotine Patch) 21 MG/24 HOUR PATCH.TD24 21 Milligram On the skin DAILY Qty = 14 No Refills Comments: Last Taken:12/30/17 Time:8am Naltrexone HCl (Naltrexone HCl) 50 MG TABLET 1 Tablet ORAL Every Morning Qty = 30 No Refills Comments: Last Taken:12/30/17 Time:8am Gabapentin (Gabapentin) 400 MG CAPSULE 400 Milligram ORAL 0800,1400,2000 Qty = 45 No Refills Comments: Last Taken:12/29/17 Time:10pm Albuterol Sulfate (Ventolin Hfa) 90 MCG HFA.AER.AD 2 Puff Inhale through mouth EVERY 4 HOURS NEEDED as needed for SHORTNESS OF BREATH Qty = 1 No Refills Comments: not taken in hospital Bupropion HCl (Wellbutrin XL) 150 MG TAB.ER.24H 150 Milligram ORAL DAILY @8 AM Qty = 15 No Refills Comments: Last Taken:12/30/17 Time:8am Atenolol (Atenolol) 25 MG TABLET 25 Milligram ORAL DAILY Qty = 30 No Refills Comments: Last Taken:12/30/17 Time:8am Folic Acid (Folic Acid) 1 MG TABLET 1 Tablet ORAL DAILY Qty = 30 No Refills Pantoprazole Sodium (Protonix) 40 MG TABLET.DR 1 Tablet ORAL DAILY Qty = 30 No Refills Studies Pending at Discharge None Copies To: OPS
[2017-12-24 15:52] VITALS: BP 117/77
[2017-12-25 07:32] VITALS: BP 116/71
--- NOTE | 2017-12-25 08:17 | SOCIAL WORKER PROG NOTE PSYCH ---
Social Work Progress Note Progress Note Called OPS to schedule follow up appts. Intake is scheduled for 12/31 at 11am with Prerna Landin and melissa eddyal scheduled with Dr. Day on 01/16 at 11am. Started calling therapists to arrange an appt. Delmis Jalloh RAVEN can see her at 10am in [place]. Informed Radha of the above information. She was pleased to hear this was all worked out. She reports not sleeping that well last night and that she had disruptive sleep. She seems sensitive to the noises around her. Encouraged some ear plugs if possible. She reports feeling comfortable on the unit and said she is starting to open up more in groups. She has been having a difficult time outside of the hospital being social with others. She feels very self- conscience. She has a hard time around what people think of her. Tried to explore how this is an irrational belief. Talked about working on involving herself in hobbies/ interests at home. She needs to think more about what those things would be, but started a list that included walking and cooking. Willing to try AA again. She is also interested in volunteering and may look into that. Reports no cravings or thoughts of drinking. Stated this is what happens and then she relapses and binges for days. She doesn't like drinking. She doesn't like the behaviors that go along with it, like sneakiness. Reports a decrease in anxiety today rates herself at a 5 (0-10, 10 being most severe). This is a decrease from yesterday. She said staying busy today was helpful. She is looking to discharge on Saturday.
[2017-12-25 12:16] VITALS: BP 119/66
--- NOTE | 2017-12-25 13:33 | CP SOUTH PROGRESS NOTE PSYCH ---
Psych (Inpt) Progress Note Progress Note Vital Signs: Blood pressure: 119/66 mmHg, pulse: 77 bpm, temperature: 96.8F, and RR: 20/min, pulse oxymetry: 96% The patient's progress, treatment plan, and aftercare plans were discussed and the treatment team meeting this morning. The treatment team included nursing staff, social work staff, group/milieu, and activity therapy staff, and psychiatrist. Mental Status Examination: Radha reported that she is still feeling anxious and depressed (with a relative improvement) She was alert & oriented to time, place, and person. She was calm and cooperative. Her speech was normal/not pressured. Radha denied wishing & denied thinking of suicide. She denied thinking of violence or homicide. Her thought process was coherent. She denied feeling paranoid, denied hallucinations , and there were no delusional thoughts. Assessment: Radha is a 52-year-old White female who was admitted to the inpatient psychiatric unit on December 19, 2017 due to increasing thoughts of suicide, increasing depression and daily alcohol use. Since her admission, Radha has shown some improvement in mood and anxiety, no wishing or thoughts of suicide in the past 48 hours Treatment Plan Update: I discussed pharmacological options with Radha. I discussed the potential side effects and potential benefits of the Wellbutrin/Celexa regimen. She seemed to understand and asked intelligent questions about her medications. We agreed on the following plan: 1) Change Klonopin to 1 mg Q 8:00 PM 2) Continue Nicotine patch 21 MG DAILY 3) Continue Escitalopram 20 MG Q 08:00 AM 4) Continue Gabapentin 400 mg Q 08:00, 1400, and 1999 5) Continue Wellbutrin-XL 150 mg every morning Continue Tiotropium [place] 1 PUF DAILY Trazodone 150 MG Trazodone 50 MG AT BEDTIME PRN
[2017-12-25 16:13] VITALS: BP 133/79
[2017-12-25 20:02] VITALS: BP 135/79
[2017-12-26 07:56] VITALS: BP 133/80
[2017-12-26] MEDS ORDERED: NALTREXONE HCL50 M1 PO (10:19)
[2017-12-26] MEDS ORDERED: NICOTINE PATCH1 EAC3 TOP (10:19)
[2017-12-26] MEDS ORDERED: GABAPENTIN400 M2 PO (10:22)
--- NOTE | 2017-12-26 11:28 | CP SOUTH PROGRESS NOTE PSYCH ---
Psych (Inpt) Progress Note Progress Note The patient's progress, treatment plan, and aftercare plans were discussed and the treatment team meeting this morning. The treatment team included nursing staff, social work staff, group/milieu, and activity therapy staff, and psychiatrist. Mental Status Examination: Vital Signs: Blood pressure: 133/80 mmHg, pulse: 96 bpm, temperature: 97.5F, and RR: 20/min, pulse oxymetry: 95% at room air Radha reported that she feeling slightly less anxious and less depressed. She was alert & oriented to time, place, and person. She was calm and cooperative. Her speech was normal/not pressured. Radha denied wishing & denied thinking of suicide. She denied thinking of violence or homicide. Her thought process was coherent. She denied feeling paranoid, denied hallucinations, and there were no delusional thoughts. Assessment: Radha is a 52-year-old White female who was admitted to the inpatient psychiatric unit on December 19, 2017 due to increasing thoughts of suicide, increasing depression and daily alcohol use. Radha showed improvement in mood and anxiety, no wishing or thoughts of suicide in the past 72 hours Treatment Plan Update: I discussed pharmacological options with Radha. We agreed on the following plan : 1) Continue Klonopin 1 mg Q 8:00 PM 2) Continue Nicotine patch 21 MG DAILY 3) Continue Escitalopram 20 MG Q 08:00 AM 4) Continue Gabapentin 400 mg Q 08:00, 1400, and 2000 5) Continue Wellbutrin-XL 150 mg every morning 6) Continue Tiotropium [place] 1 PUF DAILY Trazodone 150 MG
--- NOTE | 2017-12-26 12:06 | SOCIAL WORKER PROG NOTE PSYCH ---
Social Work Progress Note Progress Note SOMMER TORIBIO [id number] 1965 SOMMER TORIBIO [id number] Pended Authorization # Client Authorization # Type of Request [id number] CONCURRENT Date of Admission/ Start of Services Requested From Submission Date 12/19/2017 12/26/2017 12/26/2017
[2017-12-26 12:15] VITALS: BP 99/67
--- NOTE | 2017-12-26 15:35 | SOCIAL WORKER PROG NOTE PSYCH ---
Social Work Progress Note Progress Note Radha and I reviewed her aftercare plans. She tends to get a little confused around her appts. and the purpose. She feels really good about her plans. She talked about trying to keep herself busy. She is thinking of trying a women's AA meeting in [place]. Overall she is ready to discharge tomorrow. She said her sister will come and pick her up at 10am. Told her I would give her map quest directions from her house to her therapy appt. Wed. Asked her how she is planning to get to her appt.? She said she is hoping her Mom will let her use the car.
[2017-12-26 16:00] VITALS: BP 97/69
[2017-12-26 20:11] VITALS: BP 123/66
[2017-12-27 08:06] VITALS: BP 127/82
--- NOTE | 2017-12-27 08:46 | SOCIAL WORKER PROG NOTE PSYCH ---
Social Work Progress Note Progress Note Radha said she slept well. She said she was anxious about going home today and feels she needs to stay through the weekend. She doesn't feel she would hurt herself, but feels she would fall back into a "funk" because weekends are difficult for her. Tried to talk about activities and involving her sister, but this didn't seem to help her. She said she feels she needs to be discharged closer to the time of her intake appt. across the street. Acknowledged/ validated her feelings of being scared and told her I would discuss this plan further with the team. After further discussion we decided to change her discharge to Saturday.
--- NOTE | 2017-12-27 09:01 | CP SOUTH PROGRESS NOTE PSYCH ---
Psych (Inpt) Progress Note Progress Note The patient's progress, treatment plan, and aftercare plans were discussed with the treatment team (RN, social work staff, Group/milieu, and activity therapy staff, and psychiatrist). Vital Signs Date Time Temp Pulse Resp B/P B/P Pulse O2 O2 Flow FiO2 Mean Ox Delivery Rate 12/27 0810 97.1 92 20 127/82 12/27 0806 97.1 92 127/82 95 12/26 2010 97.5 81 123/66 93 12/26 1600 76 97/69 95 12/26 1215 67 99/67 98 Mental Status Examination: Vital Signs: Blood pressure: 127/82 mmHg, pulse: 92 bpm, temperature: 97.1F, and RR: 20/min, pulse oxymetry: 95% at room air. Radha reported that she is not feeling ready for discharge. She reported that she still feels anxious and depressed. She is worried about the weekend and "being in a funk". Her affect seemed depressed and constricted. She was alert & oriented to time, place, and person. She was calm and cooperative. Her speech was normal/not pressured. Radha denied wishing & denied thinking of suicide. She denied thinking of violence or homicide. Her thought process was coherent. She denied feeling paranoid, denied hallucinations, and there were no delusional thoughts. Assessment: Radha is a 52-year-old White female who was admitted to the inpatient psychiatric unit on December 19, 2017 due to increasing thoughts of suicide, increasing depression and daily alcohol use. Radha showed improvement in mood and anxiety, no wishing or thoughts of suicide in the past 4 days, however, she feels that she is not ready for discharge and continues to be depressed and anxious and not comfortable about her prospects for the weekend. She was slated for discharge but given her risk factors on the whole clinical picture the team decided to keep for the weekend and reevaluate for discharge on Saturday Treatment Plan Update: I discussed pharmacological options with Radha. We agreed on the following plan : 1) Continue Klonopin 1 mg Q 8:00 PM 2) Continue Nicotine patch 21 MG DAILY 3) Continue Escitalopram 20 MG Q 08:00 AM 4) Continue Gabapentin 400 mg Q 08:00, 1400, and 2000 5) Continue Wellbutrin-XL 150 mg every morning 6) Continue Tiotropium [place] 1 PUF DAILY 7) Continue Trazodone 150 MG
[2017-12-27 12:44] VITALS: BP 102/62
[2017-12-27 15:49] VITALS: BP 141/78
[2017-12-27 20:07] VITALS: BP 107/63
[2017-12-28 07:57] VITALS: BP 100/66
[2017-12-28 11:57] VITALS: BP 107/70
[2017-12-28 15:53] VITALS: BP 100/58
--- NOTE | 2017-12-28 16:37 | CP SOUTH PROGRESS NOTE PSYCH ---
Psych (Inpt) Progress Note Progress Note Include the following elements, when applicable: Involvement in the active treatment of the patient with behavioral observations of the patient and the patient's response to the treatment. Review of the ongoing treatment process in the context of the treatment plan. Indication of how multi-disciplinary staff members are carrying out the treatment plan. Plans for future interventions and recommendations for revision of the treatment plan. Liaison with other physicians/providers. Progress Note: Pleasant, cooperative and calm. Focused on discharge and her plans to see providers and see her family on discharge. We discussed weekends as a difficult time for her and she will prepare a written plan of things to do next weekend such that she is distracted from drinking and isolating. She has been eating and sleeping well. MSE: calm pleasant woman, small stature. Her speech is normal. No psychomotor changes. She is in a good mood and affect is full and reactive. Thinking is logical and no evidence of delusions. Denies depressive sx or wanting to harm self or others. she is not hallucinating and no evidence of internal preoccupation or distraction. Insight and judgment are adequate. Plan: continues to have stable risk factors, addressing with discharge plan, behavioral activation discussion, plans for next weekend on paper. Continue current plan of care.
[2017-12-28 19:56] VITALS: BP 100/60
[2017-12-29 07:36] VITALS: BP 108/62
[2017-12-29 11:55] VITALS: BP 110/65
--- NOTE | 2017-12-29 14:14 | CP SOUTH PROGRESS NOTE PSYCH ---
Psych (Inpt) Progress Note Progress Note Include the following elements, when applicable: Involvement in the active treatment of the patient with behavioral observations of the patient and the patient's response to the treatment. Review of the ongoing treatment process in the context of the treatment plan. Indication of how multi-disciplinary staff members are carrying out the treatment plan. Plans for future interventions and recommendations for revision of the treatment plan. Liaison with other physicians/providers. Progress Note: Pleasant, cooperative and socializing with peers earlier today. Has exchanged numbers with some peers and is going to meet them for coffee later on in a few weeks once everyone is discharged and stabilized. Stated that one peer is also an alcoholic and uses the peer as a support, will ask to go to an AA meeting together. Forgot to write down list for the weekend, but stated that she will go to an AA meeting both days of the next weekend in [place], and do yard work to keep herself occupied. MSE: calm pleasant woman, small stature. Her speech is normal. No psychomotor changes. She is in a good mood and affect is full and reactive. Her thought process is goal directed and there is no evidence of depression, thoughts to harm self or psychotic sx. Insight and judgment are good. Plan: continues to have stable risk factors, addressing with discharge plan, behavioral activation discussion, plans for next weekend to keep her mind off of drinking discussed. Continue current plan of care.
[2017-12-29 15:41] VITALS: BP 117/58
[2017-12-29 19:05] VITALS: BP 105/70
[2017-12-30 08:34] VITALS: BP 122/71
[2017-12-30] MEDS ORDERED: VENTOLIN HFA18 GM INH (08:52)
[2017-12-30] MEDS ORDERED: ESCITALOPRAM OX20 MG PO (08:52)
[2017-12-30] MEDS ORDERED: WELLBUTRIN XL150 M2 PO (08:52)
[2017-12-30] MEDS ORDERED: CLONAZEPAM0.5 M2 PO (08:52)
[2017-12-30 09:14] VITALS: BP 122/71
--- NOTE | 2017-12-30 10:04 | SOCIAL WORKER PROG NOTE PSYCH ---
Social Work Progress Note Progress Note Discussed patient in team meeting with Dr. Anderson and staff regarding progress and discharge planning. Radha discharged today. She reported no SI/HI, no AH/VH. She is agreeable to discharge plan [facility] intake with 12/31/17 at 11am Sarah Kapoor LCSW, and medication evaluation Dr. Day 01/16/18 at 11am.
[2017-12-30] MEDS ORDERED: ATENOLOL25 M1 PO (10:19)
[2017-12-30] MEDS ORDERED: PROTONIX40 M3 PO (10:43)
[2017-12-30] MEDS ORDERED: FOLIC ACID1 M1 PO (10:43)
--- NOTE | 2017-12-30 10:56 | CP SOUTH PROGRESS NOTE PSYCH ---
Psych (Inpt) Progress Note Progress Note The patient's progress, treatment plan, and aftercare plans were discussed with the treatment team (RN, social work staff, Group/milieu, and activity therapy staff, and psychiatrist). Vital Signs Date Time Temp Pulse Resp B/P Pulse O2 O2 Flow FiO2 12/30 0914 96.2 81 20 122/71 04 0834 96.2 81 122/71 96 Mental status: The patient was alert and oriented to time, place, and person. She was pleasant , cooperative and socializing with peers earlier today. She was calm and her speech is normal. No psychomotor changes. She is in a good mood and affect is full and reactive. Her thought process was goal directed and there is no evidence of depression, thoughts to harm self or psychotic sx. Insight and judgment are good. Plan: Discharge home with plan to continue treatment with [facility]
--- NOTE | 2017-12-30 18:07 | SOCIAL WORKER PROG NOTE PSYCH ---
Social Work Progress Note Faxed Referral(s) Referred To: [facility] Transition of Care Documents sent: Health Summary Faxed to: [facility] Fax #: [phone] Faxed by: Aditi Bejarano LCSW Date faxed: 12/30/17 Time Faxed: [phone]
--- NOTE | 2017-12-30 19:13 | SOCIAL WORKER PROG NOTE PSYCH ---
Social Work Progress Note Faxed Referral(s) Referred To: Delmis Jalloh LCSW Therapist Transition of Care Documents sent: Health Summary Faxed to: Delmis Jalloh LCSW Fax #: [phone] Faxed by: Aditi Bejarano LCSW Date faxed: 12/30/17 Time Faxed: [phone]
--- NOTE | 2017-12-30 20:01 | SOCIAL WORKER PROG NOTE PSYCH ---
Social Work Progress Note Progress Note [facility]TED [facility] REVIEW FROM 12/28/17 CONCURRENT TO TODAY. D/C NEEDS TO BE COMPLETED.
== END 2017-12-30 11:19 | DRG 754 ==
LOC: ERH 18:19 → ERHI 12-19 14:34 → CP SOUTH 12-19 14:34 → EDBEDREQ 12-19 14:49 → CP SOUTH 12-19 17:37
PROVIDERS: Emergency Medicine
DX: F32.9 Major depressive disorder, single episode, unspecified (principal); F10.20 Alcohol dependence, uncomplicated
CPT/HCPCS: 80307; 93005; 93010; 99291; G0480; J3490